=== PATIENT | female | born 1980 ===

== ENCOUNTER 2024-11-08 09:20 | Outpatient (AMB) | payer MEDICARE, MEDICAID, SELFPAY ==
--- OUTSIDE RECORDS SUMMARY | 2023-12-16 11:36 | XMS_ITS | Encounter Summary ---
Author Organization [employer] Address [address] [place] [address] Care Team Providers Care Kosher Butcher Name Role Phone Anayeli Cline MD Primary Care Provider [phone] Encounter Details Date Type Department Care Team (Late st Contact Info) Description 12/16/2023 11:36 AM EDT Hospital Encounter TH HISTORIC ENCOUNTERS EASTERN CONVERSION ONLY Sho Morfin, DO [address] [place] [address] Social History Tobacco Use Types Packs/Day Years Used Date Smoking Tobacco: Every Day Cigarettes 0.3 35.8 Started: 1989 Smokeless Tobacco: Never Alcohol Use Standard Drinks/Week Comments Not Currently 0 (1 standard drink = 0.6 oz pur e alcohol) Comments No Sex and Gender Information Value Date Recorded Sex Assigned at Female 08/27/2021 12:14 PM EDT Legal Sex Female 11:56 AM EDT Gender Identity Female 08/27/2021 12:14 PM EDT Sexual Orientation Lesbian or Seymour 08/27/2021 12 :14 PM EDT documented as of this encounter Last Filed Vital Signs Vital Sign Reading Time Taken Comments Blood Pressure 89/54 12/16/2023 12:03 PM EDT Sitting Right arm Pulse 69 12/16/2023 12:03 PM EDT Temperature - - Respiratory Rate - - Oxygen Saturation - - Inhaled Oxygen Concentration - - Weight 78 kg (172 lb) 12/16/2023 12:03 PM EDT Height 162.6 cm (5' 4 ) 11/17/2023 11:1 9 AM EDT Body Mass Index 29.52 12/01/2023 9:59 AM EDT documented in this encounter Progress Notes * Sho Morfin DO - 12/16/2023 11:45 AM EDT Images from the original note were not included. Progress Notes by Sho Morfin DO at 12/16/2023 11:45 AM Author: Sho Morfin DO Service: -- Author Type: Physician Filed: 12/16/2023 4:20 PM Encounter Date: 12/16/2023 Status: Signed Occupational Health Professional: Sho Morfin DO (Physician) Hematology/Oncology Follow Up Note Date 12/16/2023 Subjective Interval history Patient presents today for follow-up accompanied by her mother. States she is feeling better. She denies any heartburn or abdominal discomfort. She continues to abstain from alcohol. Hematologic history 43 year old female presents for evaluation of thrombocytopenia. She had labs done on 09/10/23: WBC 6.0 hemoglobin 15.3, MCV 102.1, platelets of 109. She then had bloating of her abdomen and jaundice. She noted easy bruising. Also easy bleeding as well. Subsequently she was admitted to the hospital with elevated bilirubin, suspected alcohol hepatitis. In the hospital Nov 04, her platelet count was 71. She has history of H pylori gastritis, and was treated for it ten years ago. Past Medical History Past Medical History: Diagnosis Date ? Alcoholic cirrhosis (HCC) ? Chronic kidney disease ? Diabetes mellitus (HCC) ? GERD (gastroesophageal reflux disease) ? History of hepatitis C ? History of heroin abuse (HCC) ? Liver disease ? DAIN (obstructive sleep apnea) ? Positive H. pylori test ? Substance abuse (HCC) Past Surgical History Past Surgical History: Procedure Laterality Date ? SECTION ? CHOLECYSTECTOMY ? COLONOSCOPY ? KIDNEY STONE SURGERY ? UPPER GASTROINTESTINAL ENDOSCOPY Family History Family History Problem Relation Age of Onset ? Brain cancer Father Personal and Social History Social History Tobacco Use Smoking Status Every Day ? Packs/day: 1 ? Types: Cigarettes Smokeless Tobacco Never Social History Substance and Sexual Activity Alcohol Use Not Currently Comment: Quit 10/2023 Social History Substance and Sexual Activity Drug Use Not Currently Comment: Quit 04/2022 REVIEW OF SYSTEMS: Constitutional: see above Respiratory: No cough Cardiac: No chest pain, palpitations GI: see above : No urinary complaints Skin: No rashes or ease of bruising Neuro: No headaches, dizziness, Hem/Lymph : No palpable lymph nodes, Objective Medications Current Outpatient Medications: ? acamprosate (CAMPRAL) 333 MG tablet, Take 2 tablets (666 mg total) by mouth 3 (three) times a day., Disp: , Rfl: ? COLESTIPOL HCL PO, Take by mouth 3 (three) times a day., Disp: , Rfl: ? FLUoxetine (PROzac) 20 MG capsule, Take 1 capsule (20 mg total) by mouth daily., Disp: , Rfl: ? folic acid (FOLVITE) tablet 1 mg, Take 1 tablet (1 mg total) by mouth daily., Disp: , Rfl: ? furosemide (LASIX) 20 MG tablet, Take 1 tablet (20 mg total) by mouth 2 (two) times a day., Disp:, Rfl: ? Lactulose Encephalopathy (Enulose) 10 GM/15ML SOLN solution, Take 30 mL (20 g total) by mouth once., Disp: , Rfl: ? metoclopramide (REGLAN) tablet 10 mg, Take 1 tablet (10 mg total) by mouth 4 (four) times a day.,Disp: , Rfl: ? pancrelipase, Ycc-Ykvi-Mycp, (CREON) [id number] units CPEP, Take 1 capsule (24,000 units of lipase total) by mouth 3 (three) times a day with meals., Disp: , Rfl: ? pantoprazole (PROTONIX) 40 MG tablet, Take 1 tablet (40 mg total) by mouth every morning on an empty stomach., Disp: , Rfl: ? spironolactone (ALDACTONE) tablet 50 mg, Take 1 tablet (50 mg total) by mouth daily., Disp: , Rfl: ? Suvorexant (Belsomra) 20 MG TABS, Take by mouth every night at bedtime., Disp: , Rfl: ? thiamine (VITAMIN B-1) 100 MG tablet, Take 1 tablet (100 mg total) by mouth daily., Disp: , Rfl: Allergies Allergies Allergen Reactions ? Amitriptyline ? Ciprofloxacin ? Penicillins ? [place] ? Raisin ? Sulfa Antibiotics Physical Exam Vitals: 12/16/23 1203 Pulse: 69 Temp: 97 ??F (36.1 ??C) TempSrc: Temporal SpO2: 98% Performance Status: 0 General: ill appearing, in no acute distress HENT: scleral icterus is present. Skin: warm, dry, +jaundiced Neuro: alert and oriented, normal speech DATA Labs Assessment & Plan 43 year old female presents for evaluation of thrombocytopenia. She has had normal platelets until two months ago. This is secondary thrombocytopenia and more acute in setting of alcohol use and suspected alcoholic hepatitis. There is no evidence of a primary hematologic disorder at this time. On repeat her platelet count has now normalized to 194, she has no anemia or leukopenia. There is no evidence of thyroid dysfunction. No evidence of hemolysis. Thrombocytopenia-resolved. Macrocytosis without anemia Continue follow-up with PCP and GI If macrocytosis does not subside with treatment of the cirrhosis and alcohol cessation, refer patient back for further evaluation H pylori Ab positive She has no acute symptoms Defer to GI need for breath test or stool test, will hold off on therapy She does continue on PPI Sign: Geno Morfin DO Hematology/Oncology [facility] [phone] documented in this encounter Plan of Treatment Upcoming Encounters Date Type Department Care Team (Late st Contact Info) Description 11/09/2024 11:30 AM EDT Office Visit Gastroenterology - [place] 175 [facility] 175 [facility] [address] [place] [address] Nakia Davenport PA 175 [facility] [address] [place] [address] 12/06/2024 11:45 AM EDT Office Visit Urogynecology [address] [address] Porsche Tripathi MD [address] [place] [address] [address] [place] [address] 01/03/2025 4:00 PM EST Office Visit Internal Medicine - [address] [phone] Brent Cline MD [address] [place], [place] 01/30/2025 1:00 PM EST Office Visit Orthopedics - [place] [phone] Sukh Knight PA [address] [place] [address] 03/15/2025 9:30 AM EST Office Visit Endocrinology - [address] [phone] Alona Gardner PA [address] [place], [place] documented as of this encounter Procedures Procedure Name Priority Date/Time Associated Diagnosis Comments ..MISCELLANEOUS REFERENCE LAB TEST 12/16/2023 documented in this encounter Results * Miscellaneous reference lab test (12/16/2023) us Provider Onbase LAB BLOOD ORDERABLES Final Re sult documented in this encounter Visit Diagnoses Not on filedocumented in this encounter Care Teams Kosher Butcher Relationship Specialty Start Date End Date Anayeli Cline MD 40 [facility] [place] [address] PCP - General 09/29/23 12/30/23 documented as of this encounter
--- OUTSIDE RECORDS SUMMARY | 2023-12-16 11:45 | XMS_ITS | Encounter Summary ---
Author Organization [employer] Address [address] [place] [address] Care Team Providers Care Offshore Wind Turbine Technician Name Role Phone Anayeli Cline MD Primary Care Provider [phone] Encounter Details Date Type Department Care Team (Late st Contact Info) Description 12/16/2023 11:45 AM EDT Hospital Encounter TH HISTORIC ENCOUNTERS EASTERN CONVERSION ONLY Sho Morfin, DO [address] [place] [address] Social History Tobacco Use Types Packs/Day Years Used Date Smoking Tobacco: Never Assessed Comments Unknown Sex and Gender Information Value Date Recorded Sex Assigned at Female 08/27/2021 12:14 PM EDT Legal Sex Female 11:56 AM EDT Gender Identity Female 08/27/2021 12:14 PM EDT Sexual Orientation Lesbian or Seymour 08/27/2021 12 :14 PM EDT documented as of this encounter Plan of Treatment Upcoming Encounters Date Type Department Care Team (Late st Contact Info) Description 11/09/2024 11:30 AM EDT Office Visit Gastroenterology - [place] [address] [facility] [address] [place] [phone] Nakia Davenport PA [address] [facility] [address] [place] [address] 12/06/2024 11:45 AM EDT Office Visit Urogynecology - [place] [phone] Porsche Tripathi MD [address] [place] [address] [address] [place] [address] 01/03/2025 4:00 PM EST [facility] [address] [place] [address] Brent Cline MD [address] [place], [place] 01/30/2025 1:00 PM EST Office Visit Orthopedics - [address] [phone] Sukh Knight PA [address] [place] [phone] 03/15/2025 9:30 AM EST Office Visit Endocrinology - [address] [phone] Alona Gardner PA [address] [place], [place] documented as of this encounter Visit Diagnoses Not on filedocumented in this encounter Care Teams Offshore Wind Turbine Technician Relationship Specialty Start Date End Date Anayeli Cline MD [address] [facility] [place] [address] PCP - General 09/29/23 12/30/23 documented as of this encounter
[2024-11-08 09:56] VITALS: BP 116/86; PULSE 91; RESP 16; O2SAT 97; BMI 30.2
--- NOTE | 2024-11-08 09:56 | MHC.OFFVIS ---
Vital Signs 11/08/24 09:56 Height 5 ft 4 in Weight 176 lb BMI 30.2 BP 116/86 Blood Pressure Location Rt brachial Position Sitting Respiration 16 Pulse 91 Pulse Oximetry (%) 97 Intake Visit Reasons: [employer]: RLS Bioprocess Engineer Required: No Accompanied by: Mother Allergies Penicillins Allergy (Unknown, Verified 11/08/24 09:53) Unknown Sulfa (Sulfonamide Antibiotics) Allergy (Unknown, Verified 11/08/24 09:53) Unknown sulfamethoxazole (From Bactrim) Allergy (Unknown, Verified 11/08/24 09:53) Unknown trimethoprim (From Bactrim) Allergy (Unknown, Verified 11/08/24 09:53) Unknown HPI Comments Details: Orin is a 44-year-old female patient with a past medical history of acne, alcoholic cirrhosis, anxiety, borderline personality disorder, chronic H pylori infection, hepatitis-C, CKD, GERD, depression, DAIN who is presenting today for an evaluation for restless leg. It appears that she has been previously diagnosed and in the past has been unable to get her Requip filled. According to documentation, this had worked well in the past and without Requip has had difficulty sleeping. It appears that she did have iron studies through primary care which were within normal range. And included in referral paperwork. The patient reports a history of restless legs syndrome for approximately 15 years, characterized by jerky and restless leg movements exacerbated by psychotropic medications. She has attempted various interventions, including stretching, heating pads, and magnesium supplementation, with limited success. The symptoms have been managed with ropinirole, currently at a dose of 4 mg, although she has previously been on 6 mg. The patient also has a history of sleep apnea, confirmed by multiple sleep studies, but she has not been using a CPAP device due to discomfort. She reports improvement in symptoms such as gasping and snoring, although she still experiences insomnia. Additionally, the patient has been diagnosed with rheumatoid arthritis, which has been associated with severe knee and ankle pain. She has received corticosteroid injections for symptom relief. 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 [facility] Medical History (Updated 11/08/24 @ 10:32 by Rhoda Queen CNP) Mental health disorder Liver disease Diabetes mellitus RLS (restless legs syndrome) Family History (Updated 11/08/24 @ 09:50 by Nafisa Kapadia CMA) Mother HLD (hyperlipidemia) Thyroid disease Father Brain cancer Social History (Updated 11/08/24 @ 09:51 by Nafisa Kapadia CMA) Alcohol intake: former Patient Tobacco Use Status: Current everyday Tobacco user Tobacco use type: Cigarette Cigarettes Per Day: 15 Use of substances other than those prescribed or required for medical reasons: No Substance Use Type: Crack/Cocaine and Heroin Review of Systems Const All systems reviewed & are unremarkable except as noted in HPI and below Physical Exam Vital Signs: Last Vital Signs Pulse 91 11/08/24 09:56 Resp 16 11/08/24 09:56 BP 116/86 11/08/24 09:56 Pulse Ox 97 11/08/24 09:56 BMI result Body Mass Index 30.2 Const General: cooperative, healthy appearing, comfortable and no acute distress Nutritional Appearance: well nourished Orientation/consciousness: patient oriented x3 Limitations: no limitations HEENT Head: Yes normal to inspection and Yes normocephalic Eyes General: appearance normal, both eyes and all related structures Visual Maddox: normal visual maddox by confrontation Alignment and Position: alignment normal Periorbital: periorbital findings normal Eyelids: Yes eyelids normal Conjunctivae: conjunctivae normal Sclerae: sclerae normal Neck Neck: Yes normal visual inspection and Yes full ROM General: Yes no CVA tenderness Back/Spine/Pelvis Back: no CVA tenderness Cervical Spine: normal cervical lordosis Thoracic/Lumbar Spine: thoracic and lumbar spine normal to inspection Neuro General: patient oriented x3, tone normal and deep tendon reflexes 2+ bilaterally Cranial nerves: Yes CN's II-XII intact bilaterally and Yes Facial sensation intact/muscles of mastication intact Cognition (Neuro): normal cognition Gait exam (Neuro): Normal gait present Motor exam (neuro): 5/5 motor strength present throughout and no tremor noted Sensory Exam: double simultaneous stimulation for sensation normal Romberg Test: Negative Pupils: Normal pupillary reactivity/response: bilateral Psych Appearance: grossly normal Mental Status: mental status grossly normal Speech and movement: Normal speech and movement present and Clear speech present Affect: normal affect Attitude: cooperative Thought process: Normal thought process present Thought content: Normal thought content present Insight: Good insight present (Psych) Judgement: Good judgement present (Psych) Assessment & Plan Assessment & Plan (1) RLS (restless legs syndrome): Code(s): G25.81 - Restless legs syndrome Category: Medical Plan Orin is a 44-year-old female patient with a past medical history of acne, alcoholic cirrhosis, anxiety, borderline personality disorder, chronic H pylori infection, hepatitis-C, CKD, GERD, depression, DAIN who is presenting today for an evaluation for restless leg. Adequate control of her restless leg on current dose of ropinirole 4 mg nightly. We did discuss reduction of caffeine intake and increase in hydration which may also be beneficial. Additionally, she does have a history of DAIN and is not currently treating. She does feel that her gasping arousals have improved however she has not had a sleep study in quite some time. I would like to obtain an in-lab PSG to evaluate for DAIN as contributing to her RLS. We discussed other potential options for treatment as she could not tolerate the CPAP device in the past. We discussed in depth the relationship between DAIN and RLS. -In lab PSG -Continue ropinerole 4mg nightly -Follow-up after sleep study Coding Level of Care Code New Pt Level 4 (45679) Diagnoses RLS (restless legs syndrome) G25.81
--- OUTSIDE RECORDS SUMMARY | 2024-11-08 11:00 | XMS_ITS | Clinical Summary ---
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 chronic Diabetic gastroparesis (CMS/HCC V24, CMS/HCC V28) AYUSH IFA WITH TITER AND PATTERN Routine 10/16/2024 9:57 AM EDT Pain in both knees, unspecified chronicity BORRELIA BURGDORFERI ANTIBODY Routine 10/16/2024 9:57 AM EDT Pain in both knees, unspecified chronicity RHEUMATOID FACTOR Routine 10/16/2024 9:5 7 AM EDT Pain in both knees, unspecified chronicity SEDIMENTATION RATE Routine 10/16/2024 9: 57 AM EDT Pain in both knees, unspecified chronicity URIC ACID Routine 10/16/2024 9:57 AM EDT Pain in both knees, unspecified chronicity HI ARTHROCENTESIS/ASPIRA TION/INJECTION MAJOR JOINT/BURSA W/O U/S GUIDANCE Routine 10/16/2024 9:00 AM EDT Pain in both knees, unspecified chronicity XR KNEE 4+ VIEWS BILAT Routine 10/10/2024 2:12 PM EDT Chronic pain of both knees XR CHEST 2 VIEWS Routine 10/10/2024 2:[address] of the chest US PELVIS NON OB COMPLETE W TRANSVAGINAL Routine 10/06/2024 1:28 PM EDT Bilateral ovarian cysts CT ABDOMEN PELVIS W CONTRAST Routine 09/21/2024 11:46 AM EDT Lower abdominal pain CBC WITH AUTO DIFFERENTIAL Routine 09/20/2024 11:07 AM EDT Screening for deficiency anemia FERRITIN Routine 09/20/2024 11:07 AM EDT Screening for deficiency anemia CBC AND DIFFERENTIAL Routine 09/20/2024 11:07 AM EDT Screening for deficiency anemia IRON AND TIBC Routine 09/20/2024 11:07 AM EDT Screening for deficiency anemia MCKINLEY URINE CULTURE TUBE Routine 09/15/2024 10:04 AM EDT Lower abdominal pain Acute bilateral low back pain with bilateral sciatica URINALYSIS WITH REFLEX MICROSCOPIC AND CULTURE Routine 09/15/2024 10:04 AM EDT Lower abdominal pain Acute bilateral low back pain with bilateral sciatica HCG, SERUM, QUALITATIVE Routine 09/15/2024 10:04 AM EDT Lower abdominal pain LIPASE Routine 09/15/2024 10:04 AM EDT Lower abdominal pain URINALYSIS WITH REFLEX MICROSCOPIC AND CULTURE Routine 09/15/2024 10:04 AM EDT Lower abdominal pain Acute bilateral low back pain with bilateral sciatica CULTURE URINE Routine 09/15/2024 10:04 AM EDT Lower abdominal pain Acute bilateral low back pain with bilateral sciatica XR LUMBAR SPINE 4+ VIEWS Routine 09/15/2024 9:53 AM EDT Lower abdominal pain CULTURE URINE Routine 09/14/2024 10:43 AM EDT Urinary tract infection without hematuria, site unspecified HEMOGLOBIN A1C Routine 09/12/2024 2:50 PM EDT Type 2 diabetes mellitus without complication, with long-term current use of insulin (CMS/HCC V24, CMS/HCC V28) BASIC METABOLIC PANEL Routine 09/12/2024 2:50 PM EDT Type 2 diabetes mellitus without complication, with long-term current use of insulin (CMS/HCC V24, CMS/HCC V28) LIPID PANEL WITH REFLEX TO DIRECT LDL Routine 09/12/2024 2:50 PM EDT Type 2 diabetes mellitus without complication, with long-term current use of insulin (CMS/HCC V24, CMS/HCC V28) MICROALBUMIN CREATININE URINE RATIO Routine 09/12/2024 2:50 PM EDT Type 2 diabetes mellitus without complication, with long-term current use of insulin (CMS/HCC V24, CMS/HCC V28) URINALYSIS MICROSCOPIC ONLY Routine 09/05/2024 1:40 PM EDT Urinary frequency URINALYSIS MICROSCOPIC ONLY Routine 09/05/2024 1:40 PM EDT Urinary frequency CULTURE URINE Routine 09/05/2024 1:37 PM EDT Urinary frequency POC URINE AUTO W/O MICRO Routine 09/05/2024 1:25 PM EDT Urinary frequency POC URINE AUTO W/O MICRO Routine 08/15/2024 1:26 PM EDT Urinary frequency MG MAMMO DIGITAL SCREENING BILAT Routine 02/09/2024 11:44 AM EST Encounter for screening mammogram for malignant neoplasm of breast HPV Routine 09/21/2023 HEPATITIS C SCREENING Routine 08/31/2023 DIABETES EYE EXAM Routine 07/08/2023 DEPRESSION SCREENING Routine 04/23/2023 HIV SCREENING Routine 07/23/2022 from Last 3 Months or Most Recently Relevant to Health Maintenance Results * Alpha fetoprotein tumor marker (10/24/2024 10:43 AM EDT) AFP <2.5 0.0 - 8.0 ng/mL LAB CHEMISTRY METHOD 10/24/2024 2:33 PM EDT [facility] Blood Venous blood specimen / Unknown Venipuncture / Unknown 10/24/2024 10:43 AM EDT 10/24/2024 11:54 AM EDT Narrative [facility] - 10/24/2024 2:33 PM EDT The Siemens Advia Centaur Chemiluminescent Immunoassay is used. Results obtained with different assay methods or kits cannot be used interchangeably. Results cannot be interpreted as absolute evidence of the presence or absence of malignant disease. us Nakia ROMERO LAB BLOOD ORDERABLES Final Re sult [facility] [address] [place] [address], * Ammonia (10/24/2024 10:43 AM EDT) Ammonia 30 11 - 35 mcmol/L LAB CHEMISTRY METHOD 10/24/2024 12:37 PM EDT [facility] Blood Venous blood specimen / Unknown Venipuncture / Unknown 10/24/2024 10:43 AM EDT 10/24/2024 11:55 AM EDT Nakia ROMERO LAB BLOOD ORDERABLES Final Re sult [facility] [address] [place] [address], [place] [phone] * Hepatic function panel (10/24/2024 10:43 AM EDT) Total Protein 7.3 6.0 - 8.0 g/dL LAB CHEMISTRY METHOD 10/24/2024 3:51 PM EDT [facility] Albumin 4.2 3.2 - 5.0 g/dL LAB CHEMISTRY METHOD 10/24/2024 3:51 PM EDT [facility] Total Bilirubin 0.6 0.0 - 1.4 mg/dL LAB CHEMISTRY METHOD 10/24/2024 3:51 PM EDT [facility] Bilirubin, Direct 0.2 0.0 - 0.3 mg/dL LAB CHEMISTRY METHOD 10/24/2024 3:51 PM EDT [facility] Bilirubin, Indirect 0.4 0.0 - 1.1 mg/dL LAB CHEMISTRY METHOD 10/24/2024 3:51 PM T [facility] ALT (SGPT) 36 10 - 60 unit/L LAB CHEMISTRY METHOD 10/24/2024 3:51 PM EDT [facility] AST (SGOT) 20 10 - 42 unit/L LAB CHEMISTRY METHOD 10/24/2024 3:51 PM EDT [facility] Alkaline Phosphatase 114 42 - 121 unit/L LAB CHEMISTRY METHOD 10/24/2024 3:51 PM EDT [facility] Blood Venous blood specimen / Unknown Venipuncture / Unknown 10/24/2024 10:43 AM EDT 10/24/2024 11:54 AM EDT Nakia ROMERO LAB BLOOD ORDERABLES Final Re sult Performing Organization Address [facility] [address]/ZIP Co de Phone Number [facility] [address] [place] [address], [place] [phone] * AYUSH IFA with titer and pattern (10/16/2024 9:57 AM EDT) Pathologist [facility] AYUSH Negative Negative 10/18/2024 6:58 AM EDT [facility] Comment:AYUSH performed by ind irect immunofluorescence (IFA) using HEp-2 substrate. Blood Venous blood specimen / Unknown Venipuncture / Unknown 10/16/2024 9:57 AM EDT 10/16/2024 9:57 AM EDT Sukh ROMERO LAB BLOOD ORDERABLES Final Resul t Performing Organization Address [facility] de Phone Number [facility] [address] [place] [address], [place] [phone] * Borrelia burgdorferi antibody (10/16/2024 9:57 AM EDT) [facility] Lyme Ab Negative Negative LAB CHEMISTRY METHOD 10/16/2024 1:13 PM EDT [facility] Comment: No laboratory evidence of infection with B. burgdorferi (Lyme disease). Negative results may occur in patients recently infected (<=14 days) with B. burgdorferi. If recent infection is suspected, repeat testing on a new sample collected in 7- 14 days is recommended. Blood Venous blood specimen / Unknown Venipuncture / Unknown 10/16/2024 9:57 AM EDT 10/16/2024 9:57 AM EDT Sukh ROMERO LAB BLOOD ORDERABLES Final Resul t Performing Organization Address [facility] [address]/ZIP Co de Phone Number [facility] [address] [place] [address], [place] [phone] * (ABNORMAL) Sedimentation rate (10/16/2024 9:57 AM EDT) Sed Rate 24(H) 0 - 20 mm/hr LAB HEMETOLOGY METHOD 10/16/2024 12:40 PM EDT [facility] Blood Venous blood specimen / Unknown Venipuncture / Unknown 10/16/2024 9:57 AM EDT 10/16/2024 9:57 AM EDT us Sukh ROMERO LAB BLOOD ORDERABLES Final Resul t Performing Organization Address [facility] [address]/ZIP Co de Phone Number [facility] [address] [place] [address], [place] [phone] * (ABNORMAL) Rheumatoid factor (10/16/2024 9:57 AM EDT) [facility] Rheumatoid Factor 19.0(H) <15.0 I Unit/mL LAB CHEMISTRY METHOD 10/16/2024 1:37 PM EDT [facility] Blood Venous blood specimen / Unknown Venipuncture / Unknown 10/16/2024 9:57 AM EDT 10/16/2024 9:57 AM EDT us Sukh ROMERO LAB BLOOD ORDERABLES Final Resul t Performing Organization Address [facility] [address]/ZIP Co de Phone Number [facility] [address] [place] [address], [place] [phone] * Uric acid (10/16/2024 9:57 AM EDT) [facility] Uric Acid 3.8 3.1 - 7.8 mg/dL LAB CHEMISTRY METHOD 10/16/2024 1:33 PM EDT [facility] Blood Venous blood specimen / Unknown Venipuncture / Unknown 10/16/2024 9:57 AM EDT 10/16/2024 9:57 AM EDT us Sukh ROMERO LAB BLOOD ORDERABLES Final Resul t [facility] ([facility]) [facility] [address] [place] [address], [place] [phone] * HI ARTHROCENTESIS/ASPIRATION/INJECTION MAJOR JOINT/BURSA W/O U/S GUIDANCE (10/16/2024 9:00 AM EDT) Sukh Nunez PA - 10/16/2024 9:00 AM EDT NICK Laureano 10/16/2024 10:24 AM L Inj/Asp: R knee Indications: pain Details: 22 G needle, anterolateral approach Medications: 4 mL lidocaine 1 %; 80 mg methylPREDNISolone acetate 80 mg/mL Outcome: tolerated well, no immediate complications Informed Consent: Site: Knee Laterality: Right Relevant images/test results available and reviewed: yes Health status cleared: Yes Procedure/treatment, purpose, treatment alternatives, risks/potential complications and benefits explained: yes Risk/complications/benefits details: Risks include but are not limited to: The treatment may not accomplish the desired results. Additionally bleeding, infection, damage to tendon, nerve, cartilage, muscle; thinning or lightening of the skin in the area of injection; flushing or redness of the face, elevated blood pressure or blood sugar, allergic reaction, rash, increased pain Benefits include relief of inflammation and pain Patient questions answered: yes Patient agrees, verbalizes understanding, and wants to proceed: yes Consent given by: Patient Informed consent discussion completed by Physician/HALLE with patient: Verbal Pre-procedure timeout performed: yes Sukh ROMERO IN CLINIC/BEDSIDE ORDERABLES Fin al Result * XR Knee 4+ Views bilat (10/10/2024 2:12 PM EDT) Anatomical Region Laterality Modality Lower Extremities, Knee Bilateral Radiogra phic Imaging 10/10/2024 8:31 PM EDT Impressions 10/10/2024 8:34 PM EDT Very mild degenerative changes at the patellofemoral joints. POS - [id number] -------- FINAL REPORT -------- Dictated By: Tiffanie Quijano Dictated Date: 10/10/2024 20:31 ET Assigned Physician: Tiffanie Quijano Reviewed and Electronically Signed By: Tiffanie Quijano Signed Date: 10/10/2024 20:34 ET Workstation ID: [id number] Transcribed By: Self Edit Transcribed Date: 10/10/2024 20:31 ET Narrative 10/10/2024 8:34 PM EDT EXAM: Bilateral knee x-ray HISTORY: Bilateral knee pain. COMPARISON: None VIEWS: 4 views of both knees performed, AP view performed weightbearing. FINDINGS: Very mild joint space narrowing at the lateral patellofemoral joints with lateral patellar tilting. Medial and lateral joint spaces are maintained bilaterally. No acute fracture or malalignment detected. No destructive bone lesion. No joint effusions. Procedure Note Tiffanie Quijano MD - 10/10/2024 EXAM: Bilateral knee x-ray HISTORY: Bilateral knee pain. COMPARISON: None VIEWS: 4 views of both knees performed, AP view performedweightbearing. FINDINGS: Very mild joint space narrowing at the lateral patellofemoral joints withlateral patellar tilting. Medial and lateral joint spaces are maintainedbilaterally. No acute fracture or malalignment detected. No destructivebone lesion. No joint effusions. IMPRESSION: Very mild degenerative changes at the patellofemoral joints. POS - [id number] -------- FINAL REPORT -------- Dictated By: Tiffanie Quijano Dictated Date: 10/10/2024 20:31 ET Assigned Physician: Tiffanie Quijano Reviewed and Electronically Signed By: Tiffanie Quijano Signed Date: 10/10/2024 20:34 ET Workstation ID: [id number] Transcribed By: Self Edit Transcribed Date: 10/10/2024 20:31 ET Brent Cline MD IMG XR PROCEDURES Final Result * XR Chest 2 Views (10/10/2024 2:12 PM EDT) Anatomical Region Laterality Modality Body Radiographic Magui ging 10/10/2024 4:17 PM EDT Impressions 10/10/2024 4:26 PM EDT No evidence of an acute chest process. POS - [id number] -------- FINAL REPORT -------- Dictated By: Tiffanie Quijano Dictated Date: 10/10/2024 16:17 ET Assigned Physician: Tiffanie Quijano Reviewed and Electronically Signed By: Tiffanie Quijano Signed Date: 10/10/2024 16:26 ET Workstation ID: [id number] Transcribed By: Self Edit Transcribed Date: 10/10/2024 16:17 ET Narrative 10/10/2024 4:26 PM EDT EXAM: Chest x-ray HISTORY: Follow-up groundglass opacity in the lingula on CT abdomen and pelvis. COMPARISON: 02/16/2023 and 03/29/2017, CT abdomen and pelvis 09/21/2024 FINDINGS: PA and lateral views of the chest were performed. No focal infiltrate, pleural effusion, or evidence of pulmonary edema. Heart is not enlarged. Mediastinal contours are stable. Mild degenerative changes in the spine. Procedure Note Tiffanie Quijano MD - 10/10/2024 EXAM: Chest x-ray HISTORY: Follow-up groundglass opacity in the lingula on CT abdomen andpelvis. COMPARISON: 02/16/2023 and 03/29/2017, CT abdomen and pelvis 09/21/2024 FINDINGS: PA and lateral views of the chest were performed. No focal infiltrate, pleural effusion, or evidence of pulmonary edema.Heart is not enlarged. Mediastinal contours are stable. Mild degenerativechanges in the spine. IMPRESSION: No evidence of an acute chest process. POS - [id number] -------- FINAL REPORT -------- Dictated By: Tiffanie Quijano Dictated Date: 10/10/2024 16:17 ET Assigned Physician: Tiffanie Quijano Reviewed and Electronically Signed By: Tiffanie Quijano Signed Date: 10/10/2024 16:26 ET Workstation ID: [id number] Transcribed By: Self Edit Transcribed Date: 10/10/2024 16:17 ET us Arjun ROMERO IMG XR PROCEDURES Final Result * US Pelvis Non OB Complete w Transvaginal (10/06/2024 1:28 PM EDT) Anatomical Region Laterality Modality Body, Pelvis Ultrasound 10/06/2024 3:04 PM EDT Impressions 10/06/2024 3:10 PM EDT No ovarian cysts are present. -------- FINAL REPORT -------- Dictated By: Jerzy Jacome Dictated Date: 10/06/2024 15:04 ET Assigned Physician: Jerzy Jacome Reviewed and Electronically Signed By: Jerzy Jacome Signed Date: 10/06/2024 15:10 ET Workstation ID: [id number] Transcribed By: Self Edit Transcribed Date: 10/06/2024 15:04 ET Narrative 10/06/2024 3:10 PM EDT EXAM: TRANSABDOMINAL AND TRANSVAGINAL PELVIC ULTRASOUND HISTORY: bilateral ovarian cysts COMPARISON: Ultrasound pelvis from 10/11/2023 Technique: Grayscale and Doppler images of the pelvis were obtained using transabdominal approach. Transvaginal approach was used to better characterize the ovaries. FINDINGS: The uterus is normal in size and measures 7.3 x 3.8 x 4.4 cm. The normal in caliber endometrial stripe measures up to 0.6 cm. The myometrium is unremarkable. No fibroids visualized. Right ovary measures 2.3 x 1.9 x 2.2 cm and is sonographically unremarkable. Left ovary measures 3.2 x 2.0 x 2.2 cm and is also sonographically unremarkable. No free fluid. Procedure Note Jerzy Jacome MD - 10/06/2024 EXAM: TRANSABDOMINAL AND TRANSVAGINAL PELVIC ULTRASOUND HISTORY: bilateral ovarian cysts COMPARISON: Ultrasound pelvis from 10/11/2023 Technique: Grayscale and Doppler images of the pelvis were obtained usingtransabdominal approach. Transvaginal approach was used to bettercharacterize the ovaries. FINDINGS: The uterus is normal in size and measures 7.3 x 3.8 x 4.4 cm. The normalin caliber endometrial stripe measures up to 0.6 cm. The myometrium isunremarkable. No fibroids visualized. Right ovary measures 2.3 x 1.9 x 2.2 cm and is sonographicallyunremarkable. Left ovary measures 3.2 x 2.0 x 2.2 cm and is also sonographicallyunremarkable. No free fluid. IMPRESSION: No ovarian cysts are present. -------- FINAL REPORT -------- Dictated By: Jerzy Jacome Dictated Date: 10/06/2024 15:04 ET Assigned Physician: Jerzy Jacome Reviewed and Electronically Signed By: Jerzy Jacome Signed Date: 10/06/2024 15:10 ET Workstation ID: [id number] Transcribed By: Self Edit Transcribed Date: 10/06/2024 15:04 ET us rAjun ROMERO IMG US PROCEDURES Final Result * CT Abdomen Pelvis w Contrast (09/21/2024 11:46 AM EDT) Anatomical Region Laterality Modality Body Computed Tomogra phy 09/21/2024 3:10 PM EDT Narrative 09/21/2024 3:[address] of the abdomen and pelvis with intravenous and oral contrast. History low abdominal pain. Examination was performed on multidetector scanner with administration of 100 cc of Isovue-370. Comparison with previous examinations, latest from 10/09/2023. No focal lesions were identified within the liver which on today's study revealed normal attenuation. It is arm smaller than on prior examination measuring approximately 21.4 cm and long axis. Spleen also appears to be slightly smaller measuring 14.6 cm as opposed to 16 cm previously. Gallbladder is unremarkable. There is no intrahepatic biliary ducts dilatation. Gallbladder is surgically absent. No focal abnormalities were identified in the pancreas, adrenal glands or kidneys. There is no evidence of bowel obstruction. Colon appears to be redundant. No focal abnormalities were identified. There is arm mild constipation. Uterus is unremarkable. There is suggestion of bilateral ovarian cysts measuring up to 2.7 cm on the left and 3 cm on the right. Uterus is unremarkable. Pelvic ultrasound may be considered for further assessment. Uterus and urinary bladder are unremarkable. There is no suspicious bone abnormalities. There are degenerative changes in the lower thoracic segment. There is no evidence of ventral or inguinal hernias. There is a groundglass opacity lingula which could be due to inflammatory/infectious process. There is suggestion of dependent atelectasis at the bases. CONCLUSIONS: Interval decrease in the hepatosplenomegaly with normalization of the attenuation of the liver. Suggestion of bilateral ovarian cysts. Pelvic ultrasound may be considered. Incidental findings of groundglass opacity in the lingula which could be infectious/inflammatory any is to be evaluated clinically. Mild constipation. -------- FINAL REPORT -------- Dictated By: Fay Queen Dictated Date: 09/21/2024 15:10 ET Assigned Physician: Fay Queen Reviewed and Electronically Signed By: Fay Queen Signed Date: 09/21/2024 15:24 ET Workstation ID: [id number] Transcribed By: Self Edit Transcribed Date: 09/21/2024 15:10 ET Procedure Note Fay Queen MD - 09/21/2024 CT of the abdomen and pelvis with intravenous and oral contrast. History low abdominal pain. Examination was performed on multidetector scanner with administration of100 cc of Isovue-370. Comparison with previous examinations, latest from10/09/2023. No focal lesions were identified within the liver which on today's studyrevealed normal attenuation. It is arm smaller than on prior examinationmeasuring approximately 21.4 cm and long axis. Spleen also appears to beslightly smaller measuring 14.6 cm as opposed to 16 cm previously.Gallbladder is unremarkable. There is no intrahepatic biliary ductsdilatation. Gallbladder is surgically absent. No focal abnormalities wereidentified in the pancreas, adrenal glands or kidneys. There is no evidence of bowel obstruction. Colon appears to be redundant.No focal abnormalities were identified. There is arm mild constipation. Uterus is unremarkable. There is suggestion of bilateral ovarian cystsmeasuring up to 2.7 cm on the left and 3 cm on the right. Uterus isunremarkable. Pelvic ultrasound may be considered for furtherassessment. Uterus and urinary bladder are unremarkable. There is no suspicious boneabnormalities. There are degenerative changes in the lower thoracicsegment. There is no evidence of ventral or inguinal hernias. There is a groundglass opacity lingula which could be due toinflammatory/infectious process. There is suggestion of dependentatelectasis at the bases. CONCLUSIONS: Interval decrease in the hepatosplenomegaly withnormalization of the attenuation of the liver. Suggestion of bilateralovarian cysts. Pelvic ultrasound may be considered. Incidental findings of groundglass opacity in the lingula which could beinfectious/inflammatory any is to be evaluated clinically. Mildconstipation. -------- FINAL REPORT -------- Dictated By: Fay Queen Dictated Date: 09/21/2024 15:10 ET Assigned Physician: Fay Queen Reviewed and Electronically Signed By: Fay Queen Signed Date: 09/21/2024 15:24 ET Workstation ID: [id number] Transcribed By: Self Edit Transcribed Date: 09/21/2024 15:10 ET [address] IM[address] PROCEDURES Final Result * (ABNORMAL) CBC auto differential (09/20/2024 11:07 AM EDT) WBC 6.9 4.8 - 10.8 K/mcL LAB HEMETOLOGY METHOD 09/20/2024 2:18 PM EDT [facility] RBC 4.90(H) 3.80 - 4.80 M/mcL LAB HEMETOLOGY METHOD 09/20/2024 2:18 PM EDT [facility] Hemoglobin 14.6 11.5 - 16.0 g/dL LAB HEMETOLOGY METHOD 09/20/2024 2:18 PM EDT [facility] Hematocrit 44.0 35.0 - 47.0 % LAB HEMETOLOGY METHOD 09/20/2024 2:18 PM EDT [facility] MCV 90.2 79.0 - 98.0 FL LAB HEMETOLOGY METHOD 09/20/2024 2:18 PM EDT [facility] MCH 29.9 27.0 - 32.0 pcg LAB HEMETOLOGY METHOD 09/20/2024 2:18 PM EDT [facility] MCHC 33.2 32.0 - 37.0 g/dL LAB HEMETOLOGY METHOD 09/20/2024 2:18 PM EDT [facility] RDW 13.4 11.0 - 15.0 % LAB HEMETOLOGY METHOD 09/20/2024 2:18 PM EDT [facility] Platelets 122(L) 130 - 400 K/mcL LAB HEMETOLOGY METHOD 09/20/2024 2:18 PM EDT [facility] MPV 11.8(H) 7.0 - 11.0 FL LAB HEMETOLOGY METHOD 09/20/2024 2:18 PM EDT [facility] NRBC 0.0 <1.0 % LAB [facility]EMETOLOGY [facility] NR[facility] Absolute 0.00 <0.10 K/mcL LAB HEMETOLOGY METHOD 09/20/2024 2:[facility] Neutrophils Relative 64.0 % LAB HEMETOLOGY METHOD 09/20/2024 2:[facility] Lymphocytes Relative 27.4 % LAB HEMETOLOGY METHOD 09/20/2024 2:[facility] Monocytes Relative 5.6 % LAB HEMETOLOGY METHOD 09/20/2024 2:18 PM [facility] Eosinophils Relative 1.4 % LAB HEMETOLOGY METHOD 09/20/2024 2:[facility] Basophils Relative 0.6 % LAB HEMETOLOGY METHOD 09/20/2024 2:[facility] Immature Granulocytes Relative 1.0 % LAB HEMETOLOGY METHOD 09/20/2024 2:18 [facility] Neutrophils Absolute 4.44 1.50 - 7.00 K/mcL LAB HEMETOLOGY METHOD 09/20/2024 2:18 [facility] Lymphocytes Absolute 1.90 1.00 - 5.00 K/mcL LAB HEMETOLOGY METHOD 09/20/2024 2:18 PM EDT [facility] Monocytes Absolute 0.39 0.20 - 1.00 K/mcL LAB HEMETOLOGY METHOD 09/20/2024 2:18 PM EDT [facility] Eosinophils Absolute 0.10 0.00 - 0.50 K/mcL LAB HEMETOLOGY METHOD 09/20/2024 2:18 PM EDT [facility] Basophils Absolute 0.04 0.00 - 0.20 K/[facility] LAB HEMETOLOGY METHOD 09/20/2024 2:18 PM EDT [facility] Immature Granulocytes Absolute 0.07(H) 0.00 - 0.03 K/mcL LAB HEMETOLOGY METHOD 09/20/2024 2:18 PM EDT [facility] Blood Venous blood specimen / Unknown Venipuncture / Unknown 09/20/2024 11:07 AM EDT 09/20/2024 11:07 AM EDT us Mary Lou Lopez NP LAB BLOOD ORDERABLES Final Resul t [facility] [address] [place] [address], * Iron and TIBC (09/20/2024 11:07 AM EDT) Iron 70 40 - 150 mcg/dL LAB CHEMISTRY METHOD 09/20/2024 2:21 PM EDT [facility] TIBC 360 250 - 450 mcg/dL LAB CHEMISTRY METHOD 09/20/2024 2:21 PM EDT [facility] Iron Saturation 19 15 - 50 % LAB CHEMISTRY METHOD 09/20/2024 2:21 PM EDT [facility] Blood Venous blood specimen / Unknown Venipuncture / Unknown 09/20/2024 11:07 AM EDT 09/20/2024 11:07 AM EDT us Mary Lou Lopez PYRIDINE RECOVERY OPERATOR LAB BLOOD ORDERABLES Final Resul t Performing Organization Address City/[facility] [address]/ZIP Co de Phone Number [facility] [address] [place] [address], [place] [phone] * Ferritin (09/20/2024 11:07 AM EDT) [facility] Ferritin 53 8 - 252 ng/mL LAB CHEMISTRY METHOD 09/20/2024 2:23 PM EDT [facility] Blood Venous blood specimen / Unknown Venipuncture / Unknown 09/20/2024 11:07 AM EDT 09/20/2024 11:07 AM EDT us Mary Lou Lopez NP LAB BLOOD ORDERABLES Final Resul t Performing Organization Address [facility] [address]/ZIP Me de Phone Number [facility] [address] [place] [address], [place] [phone] * (ABNORMAL) Urinalysis with reflex microscopic and culture (09/15/2024 10:04 AM EDT) [facility] Specific [place] Urine 1.017 1.003 - 1.030 LAB URINALYSIS - AUTOMATED METHOD 09/15/2024 12:51 PM [facility] pH, Urine 7.5 5.0 - 8.0 pH LAB URINALYSIS - AUTOMATED METHOD 09/15/2024 12:51 PM [facility] Leukocytes, Urine Trace(A) Negative LAB URINALYSIS - AUTOMATED METHOD 09/15/2024 12:51 PM [facility] Nitrite, Urine Negative Negative LAB URINALYSIS - AUTOMATED METHOD 09/15/2024 12:51 PM [facility] Protein, Urine Negative <=Trace mg/dL LAB URINALYSIS - AUTOMATED METHOD 09/15/2024 12:51 PM [facility] Glucose, Urine Negative Negative mg/dL LAB URINALYSIS - AUTOMATED METHOD 09/15/2024 12:51 PM EDT [facility] Ketones, Urine Negative Negative mg/dL LAB URINALYSIS - AUTOMATED METHOD 09/15/2024 12:51 PM [facility] Urobilinogen, Urine 1.0 0.2 - 1.0 mg/dL LAB URINALYSIS - AUTOMATED METHOD 09/15/2024 12:51 PM [facility] Bilirubin, Urine Negative Negative LAB URINALYSIS - AUTOMATED METHOD 09/15/2024 12:51 PM [facility] Blood, Urine Large(A) Negative LAB URINALYSIS - AUTOMATED METHOD 09/15/2024 12:51 PM [facility] RBC, Urine 3.0 0 - 4 /HPF LAB URINALYSIS - AUTOMATED METHOD 09/15/2024 12:51 PM [facility] WBC, Urine 3.0 0 - 4 /HPF LAB URINALYSIS - AUTOMATED METHOD 09/15/2024 12:51 PM [facility] Squamous Epithelial, Urine 50 0 - 60 /LPF LAB URINALYSIS - AUTOMATED METHOD 09/15/2024 12:51 PM [facility] Bacteria, Urine Negative Negative /HPF LAB URINALYSIS - AUTOMATED METHOD 09/15/2024 12:51 PM [facility] Hyaline Casts, Urine 0.00 0 - 3 /LPF LAB URINALYSIS - AUTOMATED METHOD 09/15/2024 12:51 PM [facility] Urine Urine specimen obtained by clean catch procedure / Unknown Non-blood Collection / Unknown 09/15/2024 10:04 AM EDT 09/15/2024 10:04 AM EDT us Arjun ROMERO LAB URINE ORDERABLES Fi nal Result [facility] [address] [place] [address], [place] [phone] * Mckinley urine culture tube (09/15/2024 10:04 AM EDT) [facility] Extra Tube Hold for add-ons. 09/15/2024 12:01 PM EDT [facility] Comment:Auto resulted. Urine Urine specimen obtained by clean catch procedure / Unknown Non-blood Collection / Unknown 09/15/2024 10:04 AM EDT 09/15/2024 10:04 AM EDT Arjun ROMERO LAB URINE ORDERABLES Fi nal Result [facility] [address] [place] [address], [place] [phone] * Culture urine (09/15/2024 10:04 AM EDT) Only the most recent of3 resultswithin the time period is included. [facility] Culture, Urine No growth 09/16/2024 11:20 AM EDT [facility] Urine Urine specimen obtained by clean catch procedure / Unknown Non-blood Collection / Unknown 09/15/2024 10:04 AM EDT 09/15/2024 12:51 PM EDT Arjun ROMERO LAB MICROBIOLOGY - GENE RAL ORDERABLES Final Result [facility] [address] [place] [address], [place] [phone] * HCG, serum, qualitative (09/15/2024 10:04 AM EDT) [facility] hCG Qual Negative Negative 09/15/2024 1:56 PM EDT [facility] Blood Venous blood specimen / Unknown Venipuncture / Unknown 09/15/2024 10:04 AM EDT 09/15/2024 10:04 AM EDT Arjun ROMERO LAB BLOOD ORDERABLES Fi nal Result Performing Organization Address City/[facility] [address]/ZIP Co de Phone Number [facility] [address] [place] [address], [place] [phone] * Lipase (09/15/2024 10:04 AM EDT) Lipase 53 13 - 75 unit/L LAB CHEMISTRY METHOD 09/15/2024 3:47 PM EDT [facility] Blood Venous blood specimen / Unknown Venipuncture / Unknown 09/15/2024 10:04 AM EDT 09/15/2024 10:04 AM EDT Arjun ROMERO LAB BLOOD ORDERABLES Fi nal Result Performing Organization Address [facility] [address]/[facility] Co de Phone Number [facility] [address] [place] [address], [place] [phone] * XR Lumbar Spine 4+ Views (09/15/2024 9:53 AM EDT) Anatomical Region Laterality Modality Spine, L-spine Radiographic Magui ging 09/15/2024 10:0 8 AM EDT Impressions 09/15/2024 10:10 AM EDT No acute fracture or dislocation of the lumbar spine. -------- FINAL REPORT -------- Dictated By: Jerzy Jacome Dictated Date: 09/15/2024 10:08 ET Assigned Physician: Jerzy Jacome Reviewed and Electronically Signed By: Jerzy Jacome Signed Date: 09/15/2024 10:10 ET Workstation ID: [id number] Transcribed By: Self Edit Transcribed Date: 09/15/2024 10:08 ET Narrative 09/15/2024 10:10 AM EDT HISTORY: lower back pain TECHNIQUE: 4 views of the lumbar spine COMPARISON: None FINDINGS: Vertebral body height and disc spaces are preserved. No acute fracture or dislocation is seen. The spinal alignment is well maintained without evidence of spondylolisthesis. Mild neuroforaminal stenosis is present at multiple levels. The sacroiliac joints are unremarkable. Surgical rola overlying the right upper quadrant. Large amount stool throughout the colon. Procedure Note Jerzy Jacome MD - 09/15/2024 HISTORY: lower back pain TECHNIQUE: 4 views of the lumbar spine COMPARISON: None FINDINGS: Vertebral body height and disc spaces are preserved. No acute fracture ordislocation is seen. The spinal alignment is well maintained withoutevidence of spondylolisthesis. Mild neuroforaminal stenosis is present atmultiple levels. The sacroiliac joints are unremarkable. Surgical staplesoverlying the right upper quadrant. Large amount stool throughout thecolon. IMPRESSION: No acute fracture or dislocation of the lumbar spine. -------- FINAL REPORT -------- Dictated By: Jerzy Jacome Dictated Date: 09/15/2024 10:08 ET Assigned Physician: Jerzy Jacome Reviewed and Electronically Signed By: Jerzy Jacome Signed Date: 09/15/2024 10:10 ET Workstation ID: [id number] Transcribed By: Self Edit Transcribed Date: 09/15/2024 10:08 ET Arjun ROMERO IMG XR PROCEDURES Final Result * (ABNORMAL) Lipid panel with reflex to direct LDL (09/12/2024 2:50 PM EDT) Cholesterol 214(H) 0 - 200 mg/dL LAB CHEMISTRY METHOD 09/12/2024 6:39 PM EDT [facility] Triglycerides 174(H) 0 - 150 mg/dL LAB CHEMISTRY METHOD 09/12/2024 6:39 PM EDT [facility] HDL 45 >=40 mg/dL LAB CHEMISTRY METHOD 09/12/2024 6:39 PM EDT [facility] LDL Calculated 134(H) 0 - 100 mg/dL LAB CHEMISTRY METHOD 09/12/2024 6:39 PM EDT [facility] VLDL Cholesterol Neil 34.8 mg/dL LAB CHEMISTRY METHOD 09/12/2024 6:39 PM EDT [facility] Non HDL Chol. (LDL+VLDL) 169(H) <145 mg/dL LAB CHEMISTRY METHOD 09/12/2024 6:39 PM EDT [facility] Chol/HDL Ratio 4.8(H) 0.0 - 4.4 LAB CHEMISTRY METHOD 09/12/2024 6:39 PM EDT [facility] Blood Venous blood specimen / Unknown Venipuncture / Unknown 09/12/2024 2:50 PM EDT 09/12/2024 2:50 PM EDT Alona ROMERO LAB BLOOD ORDERABLES Final Result Performing Organization Address [facility] [address]/ZIP Co de Phone Number [facility] [address] [place] [address], [place] [phone] * Microalbumin creatinine urine ratio (09/12/2024 2:50 PM EDT) Creatinine, Urine 258.0 mg/dL LAB CHEMISTRY METHOD 09/12/2024 5:54 PM EDT [facility] Microalb, Ur 14.0 0.0 - 29.0 mg/L LAB CHEMISTRY METHOD 09/12/2024 5:54 PM EDT [facility] Microalb/Creat Ratio 5 <30 mg/g creat LAB CHEMISTRY METHOD 09/12/2024 5:54 PM EDT [facility] Urine Urine specimen from urethra / Unknown Non-blood Collection / Unknown 09/12/2024 2:50 PM EDT 09/12/2024 2:50 PM EDT us Alona ROMERO LAB URINE ORDERABLES Final Result Performing Organization Address [facility] [address]/ZIP Co de Phone Number [facility] [address] [place] [address], [place] [phone] * Hemoglobin A1c (09/12/2024 2:50 PM EDT) [facility] Hemoglobin A1C 5.3 <6.5 % LAB CHEMISTRY METHOD 09/12/2024 8:47 PM EDT [facility] Mean Bld Glu Estim. 105 mg/dL LAB CHEMISTRY METHOD 09/12/2024 8:47 PM EDT [facility] Blood Venous blood specimen / Unknown Venipuncture / Unknown 09/12/2024 2:50 PM EDT 09/12/2024 2:50 PM EDT us Alona ROMERO LAB BLOOD ORDERABLES Final Result [facility] [address] [place] [address], [place] [phone] * Basic metabolic panel (09/12/2024 2:50 PM EDT) [facility] Sodium 136 133 - 145 mmol/L LAB CHEMISTRY METHOD 09/12/2024 6:36 PM EDT [facility] Potassium 4.1 3.5 - 5.5 mmol/L LAB CHEMISTRY METHOD 09/12/2024 6:36 PM T [facility] Chloride 105 96 - 110 mmol/L LAB CHEMISTRY METHOD 09/12/2024 6:36 PM T [facility] CO2 25 21 - 32 mmol/L LAB CHEMISTRY METHOD 09/12/2024 6:36 PM EDT [facility] Anion Gap 6 3 - 11 LAB CHEMISTRY METHOD 09/12/2024 6:36 PM [facility] Glucose 83 70 - 100 mg/dL LAB CHEMISTRY METHOD 09/12/2024 6:36 PM T [facility] BUN 11 5 - 25 mg/dL LAB CHEMISTRY METHOD 09/12/2024 6:36 PM [facility] Creatinine 0.76 0.50 - 1.10 mg/dL LAB CHEMISTRY METHOD 09/12/2024 6:36 PM EDT [facility] eGFR 100 >=60 mL/min/1. 73m2 LAB CHEMISTRY METHOD 09/12/2024 6:36 PM EDT [facility] Comment:Calculation based on the Chronic Kidney Disease Epidemiology Collaboration (CKD-EPI) equation refit without adjustment for race. BUN/Creatinine Ratio 14.5 LAB CHEMISTRY METHOD 09/12/2024 6:36 PM EDT [facility] Calcium 9.7 8.5 - 10.5 mg/dL LAB CHEMISTRY METHOD 09/12/2024 6:36 PM EDT [facility] Blood Venous blood specimen / Unknown Venipuncture / Unknown 09/12/2024 2:50 PM EDT 09/12/2024 2:50 PM EDT us Alona ROMERO LAB BLOOD ORDERABLES Final Result [facility] [address] [place] [address], [place] [phone] * (ABNORMAL) Urinalysis microscopic only (09/05/2024 1:40 PM EDT) RBC, Urine 1.0 0 - 4 /HPF LAB URINALYSIS - AUTOMATED METHOD 09/05/2024 4:53 PM EDT [facility] WBC, Urine 0.4 0 - 4 /HPF LAB URINALYSIS - AUTOMATED METHOD 09/05/2024 4:53 PM EDT [facility] Squamous Epithelial, Urine 61(H) 0 - 60 /LPF LAB URINALYSIS - AUTOMATED METHOD 09/05/2024 4:53 PM EDT [facility] Bacteria, Urine Negative Negative /HPF LAB URINALYSIS - AUTOMATED METHOD 09/05/2024 4:53 PM EDT [facility] Hyaline Casts, Urine 2.8 0 - 3 /LPF LAB URINALYSIS - AUTOMATED METHOD 09/05/2024 4:53 PM EDT [facility] Urine Urinary bladder structure / Unknown Non-blood Collection / Unknown 09/05/2024 1:40 PM EDT 09/05/2024 1:40 PM EDT Porsche Tripathi MD LAB URINE ORDERABLES Final Resu lt [facility] [address] [place] [address], [place] [phone] * POC Urine Auto W/O Micro (09/05/2024 1:25 PM EDT) Only the most recent of2 resultswithin the time period is included. Glucose UA POC Negative Negative, Trace mg/dL Bilirubin UA POC Negative Negative Ketones UA POC Negative Negative Specific [place] UA POC 1.025 Blood UA POC Negative Negative PH UA POC 5.5 Protein UA POC Negative Negative mg/dL Urobilinogen UA POC 0.2 E.U./dL 0.2 E.U./dL, 1.0 E.U./dL, 8 , Unable to interpret due to interfering substances mg/dL Nitrite UA POC Negative Negative Leukocytes UA POC Negative Negative Urine Urine specimen obtained by clean catch procedure / Unknown 09/05/2024 1:25 PM EDT Porsche Tripathi MD POINT OF CARE TEST ENTER/EDIT O RDERABLES Final Result * MG Mammo Digital Screening bilat (02/09/2024 11:44 AM EST) Anatomical Region Laterality Modality Breast Bilateral Mammography 02/11/2024 2:49 PM EST Impressions 02/11/2024 2:54 PM EST Benign. BI-RADS CATEGORY: 1 - NEGATIVE RECOMMENDATION: Screening bilateral mammogram is recommended in 1 year. Mammo Location: [facility], [address] [place], [place], [address], . -------- FINAL REPORT -------- Dictated By: ATILIO GODOY Dictated Date: 02/11/2024 14:49 ET Assigned Physician: ATILIO GODOY Reviewed and Electronically Signed By: ATILIO GODOY Signed Date: 02/11/2024 14:54 ET Workstation ID: [id number] Transcribed By: Self Edit Transcribed Date: 02/11/2024 14:49 ET Narrative 02/11/2024 2:54 PM EST CLINICAL: 44 years old, Female, routine annual exam. No family or personal history of breast cancer is reported. COMPARISON: This is a baseline examination. TECHNIQUE: Bilateral MLO and CC views were obtained digitally with 3-D mammogram (digital breast tomosynthesis). Computer-aided detection was utilized in evaluation of this exam (CAD). FINDINGS: There is no evidence of suspicious mass or architectural distortion. No worrisome calcifications are evident. BREAST DENSITY: B - There are scattered areas of fibroglandular density. Procedure Note Atilio Godoy MD - 02/11/2024 CLINICAL: 44 years old, Female, routine annual exam. No family orpersonal history of breast cancer is reported. COMPARISON: This is a baseline examination. TECHNIQUE: Bilateral MLO and CC views were obtained digitally with 3-Dmammogram (digital breast tomosynthesis). Computer-aided detection wasutilized in evaluation of this exam (CAD). FINDINGS: There is no evidence of suspicious mass or architectural distortion. Noworrisome calcifications are evident. BREAST DENSITY: B - There are scattered areas of fibroglandular density. IMPRESSION: Benign. BI-RADS CATEGORY: 1 - NEGATIVE RECOMMENDATION: Screening bilateral mammogram is recommended in 1 year. Mammo Location: [facility], [address] [place] [address], [facility], . -------- FINAL REPORT -------- Dictated By: ATILIO GODOY Dictated Date: 02/11/2024 14:49 ET Assigned Physician: ATILIO GODOY Reviewed and Electronically Signed By: ATILIO GODOY Signed Date: 02/11/2024 14:54 ET Workstation ID: [id number] Transcribed By: Self Edit Transcribed Date: 02/11/2024 14:49 ET Brent Cline MD IMG BI PROCEDURES Final Result * Cervical Cancer Screening: HPV (09/21/2023) [facility] Cervical Cancer Screening: HPV normal, abstracted Historical Provider HEALTH MAINTENANCE Final Result * Hepatitis C Screening (08/31/2023) [facility] Hepatitis C Screening abstracted Result [facility] Historical Provider HEALTH MAINTENANCE Final Result * Diabetes Eye Exam (07/08/2023) [facility] Diabetes: Annual Retina Eye Exam abstracted Historical Provider HEALTH MAINTENANCE Final Result * Depression Screening (04/23/2023) [facility] Depression Screening abstracted Historical Provider HEALTH MAINTENANCE Final Result * HIV Screening (07/23/2022) [facility] HIV Screening abstracted Result [facility] Historical Provider HEALTH MAINTENANCE Final Result from Last 3 Months or Most Recently Relevant to Health Maintenance Insurance MEDICARE [place]ICAID [place] Advance Directives Documents on File Type Date Recorded Patient Electro Mechanical Technician Expl anation Health Care Decision (hx) 05/19/2022 AD WINTER DIRECTIVE Health Care Decision (hx) 05/19/2022 AD WINTER DIRECTIVE Health Care Decision (hx) 05/19/2022 AD WINTER DIRECTIVE Health Care Decision (hx) 05/19/2022 AD WINTER DIRECTIVE Health Care Decision (hx) 05/19/2022 AD WINTER DIRECTIVE Health Care Decision (hx) 05/19/2022 AD WINTER DIRECTIVE Health Care Decision (hx) 05/19/2022 AD WINTER DIRECTIVE Health Care Decision (hx) 05/19/2022 AD WINTER DIRECTIVE Health Care Decision (hx) 05/19/2022 AD WINTER DIRECTIVE Health Care Decision (hx) 05/19/2022 AD WINTER DIRECTIVE Health Care Decision (hx) 05/19/2022 AD WINTER DIRECTIVE Health Care Decision (hx) 05/19/2022 AD WINTER DIRECTIVE Health Care Decision (hx) 05/19/2022 AD WINTER DIRECTIVE Health Care Decision (hx) 05/19/2022 AD WINTER DIRECTIVE Health Care Decision (hx) 05/19/2022 AD WINTER DIRECTIVE Health Care Decision (hx) 05/19/2022 AD WINTER DIRECTIVE Care Teams Government Program Manager Relationship Specialty Start Date End Date Brent Cline MD [address] [place] [id number] PCP - General Internal Medicine 12/31/23
--- OUTSIDE RECORDS SUMMARY | 2024-11-08 11:01 | XMS_ITS ---
Author Name [facility] Organization Unknown History of Medication Use Medication Directions Dispensed Refills Start Date End Date Stat us fosfomycin (MONUROL) 3 gram packet Take 3 g by mouth 1 (one) time for 1 dose. 09/18/2024 09/19/2024 active polyethylene glycol (MIRALAX) 17 gram packet Take 17 g by mouth 1 (one) time each day for 3 days. 09/15/2024 09/19/2024 active atorvastatin (LIPITOR) 10 mg tablet Take 1 tablet (10 mg total) by mouth 1 (one) time each day. 09/15/2024 active diclofenac (VOLTAREN) 75 mg EC tablet Take 1 tablet (75 mg total) by mouth 2 (two) times a day if needed (pain). Do not crush, chew, or split. 09/15/2024 active insulin aspart (NovoLOG FlexPen) 100 unit/mL (3 mL) injection pen Inject 3 times a day with meals BG< 100, 0 Unuts. 101- 150= 6 unit. 151- 200= 8 units. 201- 250= 10 units. 251- 300=12 units. 301- 350= 14 units. 351- 400= 16 units. BG> 400 call MD 09/15/2024 active methocarbamoL (ROBAXIN) 500 mg tablet Take 1 tablet (500 mg total) by mouth 4 (four) times a day if needed for muscle spasms. 09/15/2024 active mirabegron (MYRBETRIQ) 25 mg 24 hr tablet Take 1 tablet (25 mg total) by mouth 1 (one) time each day. 09/14/2024 active phenazopyridine (Pyridium) 100 mg tablet Take 1 tablet (100 mg total) by mouth 3 (three) times a day for 10 days. 09/14/2024 active HumaLOG KwikPen Insulin 100 unit/mL injection pen Dx: E11.9.Humalog Kwikpen. BG< 100, 0 Unuts. 101- 150= 6 unit. 151- 200= 8 units. 201- 250= 10 units. 251- 300=12 units. 301- 350= 14 units. 351- 400= 16 units. BG> 400 call 09/12/2024 active fluticasone propionate (FLONASE) 50 mcg/actuation nasal spray Administer 1 spray into each nostril 2 (two) times a day. 08/10/2024 active norethindrone (IVANIA,DB,SEB, MICRONOR) 0.35 mg tablet Take 1 tablet (0.35 mg total) by mouth 1 (one) time each day. 08/03/2024 active buPROPion SR (WELLBUTRIN SR) 200 mg 12 hr tablet Take 1 tablet (200 mg total) by mouth 1 (one) time each day in the morning. 07/27/2024 active lactulose (CHRONULAC) solution TAKE 15ML (10 G TOTAL) BY MOUTH TWICE A DAY 05/22/2024 active spironolactone (ALDACTONE) 25 mg tablet TAKE 1 TABLET BY MOUTH EVERY DAY 05/01/2024 active pantoprazole (PROTONIX) 40 mg EC tablet TAKE 1 TABLET BY MOUTH EVERY DAY 04/16/2024 active folic acid (FOLVITE) 1 mg tablet Take 1 tablet (1 mg total) by mouth 1 (one) time each day. 12/30/2023 active suvorexant (Belsomra) 10 mg tablet Take 2 tablets by mouth at bedtime. 11/04/2023 active LORazepam (ATIVAN) 0.5 mg tablet Take 1 tablet (0.5 mg total) by mouth 1 (one) time each day if needed. 10/14/2023 active blood sugar diagnostic (FreeStyle Lite Strips) test strip Use to check BS daily 07/05/2023 active albuterol HFA (PROAIR HFA ; PROVENTIL HFA ; VENTOLIN HFA) 90 mcg/actuation inhaler Inhale 2 puffs by mouth. 12/15/2022 active methadone (DOLOPHINE) 5 mg tablet Take 47 mg by mouth. 03/05/2021 active FLUoxetine (PROzac) 20 mg capsule Take 2 capsules (40 mg total) by mouth 1 (one) time each day. Take 1 Capsule by mouth daily. active ibuprofen (ADVIL,MOTRIN) 600 mg tablet Take 1 tablet (600 mg total) by mouth every 8 (eight) hours if needed. active metoclopramide (REGLAN) 10 mg tablet Take by mouth. active ondansetron (ZOFRAN) 4 mg tablet Take 1 tablet (4 mg total) by mouth every 8 (eight) hours if needed for nausea or vomiting. active Allergies Allergen Reaction Severity Comment Documented Date Source Status NITROFURANTOIN ANAPHYLAXIS 08/20/2022 [facility] active CIPROFLOXACIN 04/28/2022 [facility] active AMITRIPTYLINE increased restlessness in legs,Patient cannot recall what the side effect was but it was a side effect and not an allergy 10/02/2015 [facility] active PENICILLINS RASH 06/04/2009 [facility] N active SULFAMETHOXAZOLE-T RIMETHOPRIM RASH Bactrim,hives 06/04/2009 [facility] active Problems Problem Status Onset Date Problem Type Date of Resoluti on Source Anxiety active 2023-11-16 ProblemAct [facility] Generalized anxiety disorder with panic attacks active 2023-11-16 ProblemAct [facility] Substance abuse in remission ([facility] V24, [facility] V28) active 2015-06-03 ProblemAct [facility] Class 1 obesity active 2023-11-[address] [facility] Increased ammonia level active 2023-11-25 ProblemAct [facility] History of suicide attempt active 2013-10-19 ProblemAct [facility] Borderline personality disorder ([facility] V24, [facility] V28) active 2023-11-16 ProblemAct [facility] HCV (hepatitis C virus) active 2023-11-16 ProblemAct [facility] Colon polyps active 2023-11-16 ProblemAct [facility] SFRAN Irritable bowel syndrome with diarrhea active 2015-10-02 ProblemAct [facility] Agoraphobia with panic disorder active 2023-11-16 ProblemAct [facility] Marijuana use active 2019-07-20 ProblemAct [facility] HS[facility]AN RLS (restless legs syndrome) active 2017-12-07 ProblemAct [facility] Diabetic gastroparesis ([facility] V24, [facility] V28) active 2023-09-28 ProblemAct [facility] Vitamin D deficiency active 2017-08-04 ProblemAct [facility] Major depression, recurrent, chronic ([facility] V24) active 2015-12-30 ProblemAct [facility] Portal hypertensive gastropathy ([facility] V24, [facility] V28) active 2023-02-24 ProblemAct [facility] PTSD (post-traumatic stress disorder) active 2014-10-04 ProblemAct [facility] Esophagitis active 2023-11-16 ProblemAct [facility] ADELAIDA Septic arthritis of hip ([facility] V24, [facility] V28) active 2022-07-16 ProblemAct [facility] Tobacco use disorder active 2010-02-20 ProblemAct [facility] Septic arthritis of sacroiliac joint ([facility] V24) active 2022-07-21 ProblemAct [facility] GERD (gastroesophageal reflux disease) active 2023-11-16 ProblemAct [facility] Acne vulgaris active 2012-03-25 ProblemAct [facility]_T HS[facility]AN Hirsutism active 2012-03-25 ProblemAct [facility] AN Chronic Helicobacter pylori gastritis active 2017-09-09 ProblemAct [facility] Diabetes ([facility] V24, [facility] V28) active 2023-06-21 ProblemAct [facility] Obstructive sleep apnea active 2013-12-28 ProblemAct [facility] Alcoholic cirrhosis of liver without ascites ([facility] V24, [facility] V28) active 2023-11-12 ProblemAct [facility] Secondary pancreatic insufficiency active 2023-11-14 ProblemAct [facility] Immunizations Vaccine Date Source Lot Number Status Influenza trivalent, MDCK, 0 .5mL, preservative free (Flucelvax) 6mo and older 12/30/2023 [facility]AN [id number] completed Td, Unspecified 05/15/2023 [facility] completed Influenza Quadravalent, MDCK , 0.5ml, preservative free (Flucelvax) 6mo and older 03/05/2021 [facility]SFRAN [id number] completed Tdap Tetanus diptheria acell ular pertussis (Boostrix; Adacel) 7yo and older 07/12/2019 [facility] [id number] completed Influenza Quadravalent, MDCK , 0.5ml, preservative free (Flucelvax) 6mo and older 03/23/2019 [facility] [id number] completed Hepatitis A-Hepatitis B Adul t (Twinrix) 18yo and older 02/10/2018 [facility] completed Influenza Quadravalent, MDCK , 0.5ml, with preservative (Flucelvax) 6mo and older 12/07/2017 [facility] [id number] completed Hepatitis A-Hepatitis B Adul t (Twinrix) 18yo and older 09/09/2017 [facility] completed Hepatitis A-Hepatitis B Adul t (Twinrix) 18yo and older 08/11/2017 [facility] completed Influenza Quadravalent, MDCK , 0.5ml, with preservative (Flucelvax) 6mo and older 12/21/2016 [facility] [id number] completed Tdap Tetanus diptheria acell ular pertussis (Boostrix; Adacel) 7yo and older 10/25/2016 [facility] completed Influenza trivalent, 0.5mL, preservative free (Fluarix; FluLaval; Fluzone) ages 6mo and older (Afluria) 3 years and older 11/14/[id number] HPV, Quadrivalent 12/04/2011 [id number] complet ed Influenza trivalent, 0.5mL, preservative free (Fluarix; FluLaval; Fluzone) ages 6mo and older (Afluria) 3 years and older 12/04/2011 [facility] [id number] completed Tdap Tetanus diptheria acell ular pertussis (Boostrix; Adacel) 7yo and older 09/04/2009 [facility] [id number] completed Influenza trivalent, with pr eservative (Fluzone; Afluria) 6mo and older 03/22/2009 [facility] [id number] completed HPV, Quadrivalent 05/01/2008 [facility] 1129X complet ed HPV, Quadrivalent 12/23/2007 [facility] 0651X complet ed HPV, Quadrivalent 10/17/2007 [facility] 0279X complet ed Influenza trivalent, with pr eservative (Fluzone; Afluria) 6mo and older 12/15/2006 [facility] [id number] completed Td Tetanus diptheria (Tdvax) 7yo and older 02/22/2003 [facility]_T HSFRAN completed Care Team Organization Name Specialty Phone Email Start Date End Da te [facility]CO 10/11/2024 [facility] 02/03/202310/10 [facility] 10/29/20222023
--- OUTSIDE RECORDS SUMMARY | 2024-11-08 11:01 | XMS_ITS | Clinical Summary ---
Author Organization [facility] Address [address] [place] [address] Care Team Providers Care Education Courses Sales Representative Name Role Phone Anayeli Cline MD Primary Care Provider [phone] Allergies Active Allergy Reactions Criticality Noted Date Comments Amitriptyline 11/17/2023 Ciprofloxacin 11/17/2023 Penicillins 11/17/2023 Bard 11/17/2023 Raisin 11/17/2023 Sulfa Antibiotics 11/17/2023 Medications Medication Sig Dispensed Refills Start Date End Date Status Suvorexant (Belsomra) 20 MG TABS Take by mouth every night at bedtime. 0 Active metoclopramide (REGLAN) tablet 10 mg Take 1 tablet (10 mg total) by mouth 4 (four) times a day. 0 Active COLESTIPOL HCL PO Take by mouth 3 (three) times a day. 0 Active Lactulose Encephalopathy (Enulose) 10 GM/15ML SOLN solution Take 30 mL (20 g total) by mouth once. 0 Active furosemide (LASIX) 20 MG tablet Take 1 tablet (20 mg total) by mouth 2 (two) times a day. 0 Active spironolactone (ALDACTONE) tablet 50 mg Take 1 tablet (50 mg total) by mouth daily. 0 Active acamprosate (CAMPRAL) 333 MG tablet Take 2 tablets (666 mg total) by mouth 3 (three) times a day. 0 Active pantoprazole (PROTONIX) 40 MG tablet Take 1 tablet (40 mg total) by mouth every morning on an empty stomach. 0 Active folic acid (FOLVITE) tablet 1 mg Take 1 tablet (1 mg total) by mouth daily. 0 Active FLUoxetine (PROzac) 20 MG capsule Take 1 capsule (20 mg total) by mouth daily. 0 Active thiamine (VITAMIN B-1) 100 MG tablet Take 1 tablet (100 mg total) by mouth daily. 0 Active pancrelipase, Zqy-Efcd-Vcis, (CREON) 77432-25044 units CPEP Take 1 capsule (24,000 units of lipase total) by mouth 3 (three) times a day with meals. 0 Active dicyclomine (BENTYL) 10 MG/5ML syrup Take 10 mL (20 mg total) by mouth 4 (four) times a day before meals and at bedtime. 0 Active ondansetron (ZOFRAN) 24 MG tablet Take 1 tablet (24 mg total) by mouth once. 0 Active Ondansetron 4 MG FILM Take by mouth. 0 Active Active Problems No known active problems Family History Medical History Relation Name Comments Brain cancer Father Relation Name Status Comments Father Social History Tobacco Use Types Packs/Day Years Used Date Smoking Tobacco: Every Day Cigarettes 1 Smokeless Tobacco: Never Tobacco Cessation:Ready to Q uit: Not Asked; Counseling Given: Not Answered Alcohol Use Standard Drinks/Week Comments Not Currently 0 (1 standard drink = 0.6 oz pur e alcohol) Quit 10/2023 Sex and Gender Information Value Date Recorded Sex Assigned at Not on file Gender Identity Not on file Sexual Orientation Not on file Job Start Date Occupation Industry Not on file Not on file Not on file Last Filed Vital Signs Vital Sign Reading Time Taken Comments Blood Pressure 89/54 12/16/2023 12:03 PM EDT Pulse 69 12/16/2023 12:03 PM EDT Temperature 36.1 C (97 F) 12/16/2023 12:03 PM EDT Respiratory Rate - - Oxygen Saturation 98% 12/16/2023 12:03 PM EDT Inhaled Oxygen Concentration - - Weight 78 kg (172 lb) 12/16/2023 12:03 PM EDT Height 162.6 cm (5' 4 ) 11/17/2023 11:19 AM EDT Body Mass Index 29.52 11/17/2023 11:19 AM EDT Plan of Treatment Health Maintenance Due Date Last Done Comments Hepatitis C Screening 1982 COVID-19 Vaccine (#1) 1982 Pneumococcal Vaccine (1 of 2 - PCV) 01/28/1988 Depression Screening 1994 Preventative Health Evaluation 01/28/2000 Cervical Cancer Screening (Pap Smear) 2003 Influenza Vaccine (#1) 2024 2, 03/23/2019, 12/07/2017, Additional history exists DTap / Tdap / Td (5 - Td or Tdap) 05/14/2033 05/15/2023, 07/12/2019, 10/17/2016, Additional history exists Hepatitis B Vaccines Completed 02/10/2018, 09/09/2017, 08/11/2017 RSV Ped < 20 months Aged Out No longe r eligible based on patient's age to complete this topic Care Teams Education Courses Sales Representative Relationship Specialty Start Date End Date Anayeli Cline MD [address] [facility] [place] [address] PCP - General Hematology and Oncology 09/29/23
== END 2024-11-08 10:37 | disposition home or self-care (01) ==
LOC: HO.HSM 09:20
PROVIDERS: Visit Provider Nurse Practitioner
DX: G25.81 Restless legs syndrome (principal)
CPT/HCPCS: 99204

== ENCOUNTER → 2024-11-08 09:20 | Outpatient (BNVA) | payer MEDICARE, MEDICAID, SELFPAY | PROVIDERS: Visit Provider Nurse Practitioner | DX: G25.81 Restless legs syndrome (principal) | CPT/HCPCS: 99202 ==

== ENCOUNTER → 2024-11-24 20:30 | Outpatient (REF) | payer MEDICARE, MEDICAID, SELFPAY ==
--- OUTSIDE RECORDS SUMMARY | 2023-12-16 11:36 | XMS_ITS | Encounter Summary ---
Author Organization [employer] [place] [address] Care Team Providers Care French Weaver Name Role Phone Anayeli Cline MD Primary Care Provider [phone] Encounter Details Date Type Department Care Team (Late st Contact Info) Description 12/16/2023 11:36 AM EDT Hospital Encounter TH HISTORIC ENCOUNTERS EASTERN CONVERSION ONLY Sho Morfin, DO [address] [place] [address] Social History Tobacco Use Types Packs/Day Years [...] 8:05 AM EDT Cynthia Rodriguez RN * [place] Suicide Severity Rating Scale (Screener/Recent Self-Report) Question [...] 4:20 PM Encounter Date: 12/16/2023 Status: Signed Ward Attendant: Sho Morfin DO (Physician) Hematology/Oncology Follow Up [...] times a day.,Disp: , Rfl: ? pancrelipase, Wja-Rnxh-Diis, (CREON) [id number] units CPEP, Take 1 capsule (24,000 units [...] ? Amitriptyline ? Ciprofloxacin ? Penicillins ? [place] ? Raisin ? Sulfa Antibiotics Physical Exam [...] PPI Sign: Geno Morfin DO Hematology/Oncology [facility] [phone] documented in this encounter Plan of Treatment Upcoming Encounters Date Type Department Care Team (Late st Contact Info) Description 11/28/2024 1:00 PM EDT Office Visit Obstetrics and Gynecology - [address] [phone] Catarina Claire CNM [address] [place] [phone] 12/06/2024 11:45 AM EDT Office Visit Urogynecology - [address] [phone] Porsche Tripathi MD 580 [facility] 205 [place] [address] 01/03/2025 4:00 PM EST Office Visit Internal Medicine - [address] [phone] Brent Cline MD [address] [place] [address] 01/30/2025 1:00 PM EST Office Visit Orthopedics - [address] [phone] Sukh Knight PA [address] [place] [address] 03/15/2025 9:30 AM EST Office Visit Endocrinology - [address] [phone] Alona Gardner PA [address] [place] [address] 11/12/2025 11:30 AM EDT Office Visit Gastroenterology - [place] [address] [facility] [address] [place] [phone] Nakia Davenport PA [address] [facility] 200 [place] [address] documented as of this encounter Procedures Procedure Name Priority Date/Time Associated Diagnosis Comments ..MISCELLANEOUS REFERENCE LAB TEST 12/16/2023 documented in this encounter Results * Miscellaneous reference lab test (12/16/2023) us Provider Onbase LAB BLOOD ORDERABLES Final Re sult documented in this encounter Visit Diagnoses Not on filedocumented in this encounter Care Teams French Weaver Relationship Specialty Start Date End Date Anayeli Cline MD 40 [facility] [place] [address] PCP - General 09/29/23 12/30/23 documented as of this encounter
--- OUTSIDE RECORDS SUMMARY | 2023-12-16 11:45 | XMS_ITS | Encounter Summary ---
Author Organization [employer] [place] [address] Care Team Providers Care Oceanography Professor Name Role Phone Anayeli Cline MD Primary Care Provider [phone] Encounter Details Date Type Department Care Team (Late st Contact Info) Description 12/16/2023 11:45 AM EDT Hospital Encounter TH HISTORIC ENCOUNTERS EASTERN CONVERSION ONLY Sho Morfin, DO [address] [place] [address] Social History Tobacco Use Types Packs/Day Years Used Date Smoking Tobacco: Never Assessed Comments Unknown Sex and Gender Information Value Date Recorded Sex Assigned at Female 08/27/2021 12:14 PM EDT Legal Sex Female 11:56 AM EDT Gender Identity Female 08/27/2021 12:14 PM EDT Sexual Orientation Lesbian or Seymour 08/27/2021 12 :14 PM EDT documented as of this encounter Functional Status * Calculated C-SSRS Risk Score (Lifetime/Recent) Answer Date of Assessment Author No Risk Indicated 09/30/2024 8:05 AM EDT Cynthia Rodriguez RN * [place] Suicide Severity Rating Scale (Screener/Recent Self-Report) Question Answer Date of Assessment Author 1. Wish to be (Past 1 Month) No 025 8:05 AM EDT Cynthia Rodriguez RN 2. Non-Specific Active Suici antoine Thoughts (Past 1 Month) No 09/30/2024 8:05 AM EDT Alia Rodriguez RN 6. Suicidal Behavior (Lifetime) No 8:05 AM EDT Cynthia Rodriguez, RN documented as of this encounter Plan of Treatment Upcoming Encounters Date Type Department Care Team (Late st Contact Info) Description 11/28/2024 1:00 PM EDT Office Visit Obstetrics and Gynecology - [address] [phone] Catarina Claire CNM [address] [place] [address] 12/06/2024 11:45 AM EDT Office Visit Urogynecology - [address] [phone] Porsche Tripathi MD 580 [facility] [address] [place] [address] 01/03/2025 4:00 PM EST Office Visit Internal Medicine - [address] [phone] Brent Cline MD [address] [place] [address] 01/30/2025 1:00 PM EST Office Visit Orthopedics - [address] [phone] Sukh Knight PA [address] [place] [phone] 03/15/2025 9:30 AM EST Office Visit Endocrinology - [address] [phone] Alona Gardner PA [address] [place] [address] 11/12/2025 11:30 AM EDT Office Visit Gastroenterology - [place] [address] [place] [phone] Nakia Davenport PA [address] [place] [address] [place] [address] documented as of this encounter Visit Diagnoses Not on filedocumented in this encounter Care Teams Oceanography Professor Relationship Specialty Start Date End Date Anayeli Cline MD 40 [facility] [place] [address] PCP - General 09/29/23 12/30/23 documented as of this encounter
--- OUTSIDE RECORDS SUMMARY | 2024-11-24 22:07 | XMS_ITS | Clinical Summary ---
Author Organization [facility] Address [address] [place] [address] Care Team Providers Care Cook Helper Pastry Name Role Phone Anayeli Cline MD Primary Care Provider [phone] Allergies Active Allergy Reactions Criticality Noted Date Comments Amitriptyline 11/17/2023 Ciprofloxacin 11/17/2023 Penicillins 11/17/2023 Dolph 11/17/2023 Raisin 11/17/2023 Sulfa Antibiotics 11/17/2023 Medications [...] total) by mouth daily. 0 Active pancrelipase, Pwt-Updt-Sqkv, (CREON) 89635-28604 units CPEP Take 1 capsule (24,000 units [...] age to complete this topic Care Teams Cook Helper Pastry Relationship Specialty Start Date End Date Anayeli Cline MD [address] [facility] [address] PCP - General Hematology and Oncology 09/29/23
--- OUTSIDE RECORDS SUMMARY | 2024-11-24 22:07 | XMS_ITS | Clinical Summary ---
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 09/20/2024 2:18 PM EDT [facility] Eosinophils Relative 1.4 % LAB HEMETOLOGY METHOD 09/20/2024 2:18 PM EDT [facility] Basophils Relative 0.6 % LAB HEMETOLOGY METHOD 09/20/2024 2:18 PM EDT [facility] Immature Granulocytes Relative 1.0 % LAB HEMETOLOGY METHOD 09/20/2024 2:18 PM EDT [facility] Neutrophils Absolute 4.44 1.50 - 7.00 K/mcL LAB HEMETOLOGY METHOD 09/20/2024 2:18 PM EDT [facility] Lymphocytes Absolute 1.90 1.00 - 5.00 K/mcL LAB HEMETOLOGY METHOD 09/20/2024 2:18 PM EDT [facility] Monocytes Absolute 0.39 0.20 - 1.00 K/mcL LAB HEMETOLOGY METHOD 09/20/2024 2:18 PM EDT [facility] Eosinophils Absolute 0.10 0.00 - 0.50 K/mcL LAB HEMETOLOGY METHOD 09/20/2024 2:18 PM EDT [facility] Basophils Absolute 0.04 0.00 - 0.20 K/mcL LAB HEMETOLOGY METHOD 09/20/2024 2:18 PM EDT [facility] Immature Granulocytes Absolute 0.07(H) 0.00 - 0.03 K/mcL LAB HEMETOLOGY METHOD 09/20/2024 2:18 PM EDT [facility] Blood Venous blood specimen / Unknown Venipuncture / Unknown 09/20/2024 11:07 AM EDT 09/20/2024 11:07 AM EDT us Mary Lou Lopez NP LAB BLOOD ORDERABLES Final Resul t Performing Organization Address [facility] Co de Phone Number [facility] [address] [place] [address], [place] [phone] * Iron and TIBC (09/20/2024 11:07 AM EDT) Iron 70 40 - 150 mcg/dL LAB CHEMISTRY METHOD 09/20/2024 2:21 PM EDT [facility] TIBC 360 250 - 450 mcg/dL LAB CHEMISTRY METHOD 09/20/2024 2:21 PM EDT [facility] Iron Saturation 19 15 - 50 % LAB CHEMISTRY METHOD 09/20/2024 2:21 PM EDT [facility] Blood Venous blood specimen / Unknown Venipuncture / Unknown 09/20/2024 11:07 AM EDT 09/20/2024 11:07 AM EDT us Mary Lou Lopez NP LAB BLOOD ORDERABLES Final Resul t Performing Organization Address City/[facility]/ZIP Co de Phone Number [facility] [address] [place] [address], [place] [phone] * Ferritin (09/20/2024 11:07 AM EDT) Ferritin 53 8 - 252 ng/mL LAB CHEMISTRY METHOD 09/20/2024 2:23 PM EDT [facility] Blood Venous blood specimen / Unknown Venipuncture / Unknown 09/20/2024 11:07 AM EDT 09/20/2024 11:07 AM EDT us Mary Lou Lopez NP LAB BLOOD ORDERABLES Final Resul t [facility] [address] [place] [address], [place] [phone] * (ABNORMAL) Urinalysis with reflex microscopic and culture (09/15/2024 10:04 AM EDT) Specific Swink Urine 1.017 1.003 - 1.030 LAB URINALYSIS - AUTOMATED METHOD 09/15/2024 12:51 PM EDT [facility] pH, Urine 7.5 5.0 - 8.0 pH LAB URINALYSIS - AUTOMATED METHOD 09/15/2024 12:51 PM [facility] Leukocytes, Urine Trace(A) Negative LAB URINALYSIS - AUTOMATED METHOD 09/15/2024 12:51 PM [facility] Nitrite, Urine Negative Negative LAB URINALYSIS - AUTOMATED METHOD 09/15/2024 12:51 PM [facility] Protein, Urine Negative <=Trace mg/dL LAB URINALYSIS - AUTOMATED METHOD 09/15/2024 12:51 PM [facility] Glucose, Urine Negative Negative mg/dL LAB URINALYSIS - AUTOMATED METHOD 09/15/2024 12:51 PM [facility] Ketones, Urine Negative Negative mg/dL LAB URINALYSIS - AUTOMATED METHOD 09/15/2024 12:51 PM [facility] Urobilinogen, Urine 1.0 0.2 - 1.0 mg/dL LAB URINALYSIS - AUTOMATED METHOD 09/15/2024 12:51 PM [facility] Bilirubin, Urine Negative Negative LAB URINALYSIS - AUTOMATED METHOD 09/15/2024 12:51 PM [facility] Blood, Urine Large(A) Negative LAB URINALYSIS - AUTOMATED METHOD 09/15/2024 12:51 PM [facility] RBC, Urine 3.0 0 - 4 /HPF LAB URINALYSIS - AUTOMATED METHOD 09/15/2024 12:51 PM EDT [facility] WBC, Urine 3.0 0 - 4 /HPF LAB URINALYSIS - AUTOMATED METHOD 09/15/2024 12:51 PM EDT [facility] Squamous Epithelial, Urine 50 0 - 60 /LPF LAB URINALYSIS - AUTOMATED METHOD 09/15/2024 12:51 PM EDT [facility] Bacteria, Urine Negative Negative /HPF LAB URINALYSIS - AUTOMATED METHOD 09/15/2024 12:51 PM EDT [facility] Hyaline Casts, Urine 0.00 0 - 3 /LPF LAB URINALYSIS - AUTOMATED METHOD 09/15/2024 12:51 PM EDT [facility] Urine Urine specimen obtained by clean catch procedure / Unknown Non-blood Collection / Unknown 09/15/2024 10:04 AM EDT 09/15/2024 10:04 AM EDT Arjun ROMERO LAB URINE ORDERABLES Fi nal Result Performing Organization Address City/[facility]/ZIP Co de Phone Number [facility] [address] [place] [address], [place] [phone] * Mckinley urine culture tube (09/15/2024 10:04 AM EDT) Extra Tube Hold for add-ons. 09/15/2024 12:01 PM EDT [facility] Comment:Auto resulted. Urine Urine specimen obtained by clean catch procedure / Unknown Non-blood Collection / Unknown 09/15/2024 10:04 AM EDT 09/15/2024 10:04 AM EDT Arjun ROMERO LAB URINE ORDERABLES Fi nal Result Performing Organization Address City/[facility]/ZIP Co de Phone Number [facility] [address] [place] [address], [place] [phone] * Culture urine (09/15/2024 10:04 AM EDT) Only the most recent of3 resultswithin the time period is included. [facility] Culture, Urine No growth 09/16/2024 11:20 AM EDT [facility] Urine Urine specimen obtained by clean catch procedure / Unknown Non-blood Collection / Unknown 09/15/2024 10:04 AM EDT 09/15/2024 12:51 PM EDT us Arjun ROMERO LAB MICROBIOLOGY - GENE RAL ORDERABLES Final Result Performing Organization Address City/[facility]/ZIP Co de Phone Number [facility] [address] [place] [address], [place] [phone] * HCG, serum, qualitative (09/15/2024 10:04 AM EDT) [facility] hCG Qual Negative Negative 09/15/2024 1:56 PM EDT [facility] Blood Venous blood specimen / Unknown Venipuncture / Unknown 09/15/2024 10:04 AM EDT 09/15/2024 10:04 AM EDT us Arjun ROMERO LAB BLOOD ORDERABLES Fi nal Result Performing Organization Address City/[facility]/ZIP Co de Phone Number [facility] [address] [place] [address], [place] [phone] * Lipase (09/15/2024 10:04 AM EDT) [facility] Lipase 53 13 - 75 unit/L LAB CHEMISTRY METHOD 09/15/2024 3:47 PM EDT [facility] Blood Venous blood specimen / Unknown Venipuncture / Unknown 09/15/2024 10:04 AM EDT 09/15/2024 10:04 AM EDT us Arjun ROMERO LAB BLOOD ORDERABLES Fi nal Result [facility] ([facility]) [facility] [address] [place] [address], * XR Lumbar Spine 4+ Views (09/15/2024 [...] Signed Date: 09/15/2024 10:10 ET Workstation ID: [id number] Transcribed By: Self Edit Transcribed Date: 09/15/2024 [...] Signed Date: 09/15/2024 10:10 ET Workstation ID: [id number] Transcribed By: Self Edit Transcribed Date: 09/15/2024 10:08 ET us Arjun ROMERO IMG XR PROCEDURES Final Result * (ABNORMAL) Lipid panel with reflex to direct LDL (09/12/2024 2:50 PM EDT) Cholesterol 214(H) 0 - 200 mg/dL LAB CHEMISTRY METHOD 09/12/2024 6:39 PM EDT [facility] Triglycerides 174(H) 0 - 150 mg/dL LAB CHEMISTRY METHOD 09/12/2024 6:39 PM EDT [facility] HDL 45 >=40 mg/dL LAB CHEMISTRY METHOD 09/12/2024 6:39 PM EDT [facility] LDL Calculated 134(H) 0 - 100 mg/dL LAB CHEMISTRY METHOD 09/12/2024 6:39 PM EDT [facility] VLDL Cholesterol Neil 34.8 mg/dL LAB CHEMISTRY METHOD 09/12/2024 6:39 PM EDT [facility] Non HDL Chol. (LDL+VLDL) 169(H) <145 mg/dL LAB CHEMISTRY METHOD 09/12/2024 6:39 PM EDT [facility] Chol/HDL Ratio 4.8(H) 0.0 - 4.4 LAB CHEMISTRY METHOD 09/12/2024 6:39 PM EDT [facility] Blood Venous blood specimen / Unknown Venipuncture / Unknown 09/12/2024 2:50 PM EDT 09/12/2024 2:50 PM EDT us Alona ROMERO LAB BLOOD ORDERABLES Final Result [facility] [address] [place] [address], [place] [phone] * Microalbumin creatinine urine ratio (09/12/2024 2:50 PM EDT) Creatinine, Urine 258.0 mg/dL LAB CHEMISTRY METHOD 09/12/2024 5:54 PM EDT [facility] Microalb, Ur 14.0 0.0 - 29.0 mg/L LAB CHEMISTRY METHOD 09/12/2024 5:54 PM EDT [facility] Microalb/Creat Ratio 5 <30 mg/g creat LAB CHEMISTRY METHOD 09/12/2024 5:54 PM EDT [facility] Urine Urine specimen from urethra / Unknown Non-blood Collection / Unknown 09/12/2024 2:50 PM EDT 09/12/2024 2:50 PM EDT us Alona ROMERO LAB URINE ORDERABLES Final Result Performing Organization Address [facility] Co de Phone Number [facility] [address] [place] [address], [place] [phone] * Hemoglobin A1c (09/12/2024 2:50 PM EDT) Hemoglobin A1C 5.3 <6.5 % LAB CHEMISTRY METHOD 09/12/2024 8:47 PM EDT [facility] Mean Bld Glu Estim. 105 mg/dL LAB CHEMISTRY METHOD 09/12/2024 8:47 PM EDT [facility] Blood Venous blood specimen / Unknown Venipuncture / Unknown 09/12/2024 2:50 PM EDT 09/12/2024 2:50 PM EDT us Alona ROMERO LAB BLOOD ORDERABLES Final Result Performing Organization Address City/[facility]/ZIP Co de Phone Number [facility] [address] [place] [address], [place] [phone] * Basic metabolic panel (09/12/2024 2:50 PM EDT) Sodium 136 133 - 145 mmol/L LAB CHEMISTRY METHOD 09/12/2024 6:36 PM [facility] Potassium 4.1 3.5 - 5.5 mmol/L LAB CHEMISTRY METHOD 09/12/2024 6:36 PM [facility] Chloride 105 96 - 110 mmol/L LAB CHEMISTRY METHOD 09/12/2024 6:36 PM [facility] CO2 25 21 - 32 mmol/L LAB CHEMISTRY METHOD 09/12/2024 6:36 PM [facility] Anion Gap 6 3 - 11 LAB CHEMISTRY METHOD 09/12/2024 6:36 PM [facility] Glucose 83 70 - 100 mg/dL LAB CHEMISTRY METHOD 09/12/2024 6:36 PM [facility] BUN 11 5 - 25 mg/dL LAB CHEMISTRY METHOD 09/12/2024 6:36 PM [facility] Creatinine 0.76 0.50 - 1.10 mg/dL LAB CHEMISTRY METHOD 09/12/2024 6:36 PM [facility] eGFR 100 >=60 mL/min/1. 73m2 LAB CHEMISTRY METHOD 09/12/2024 6:36 PM [facility] Comment:Calculation based on the Chronic Kidney Disease Epidemiology Collaboration (CKD-EPI) equation refit without adjustment for race. BUN/Creatinine Ratio 14.5 LAB CHEMISTRY METHOD 09/12/2024 6:36 PM [facility] Calcium 9.7 8.5 - 10.5 mg/dL LAB CHEMISTRY METHOD 09/12/2024 6:36 PM [facility] Blood Venous blood specimen / Unknown Venipuncture / Unknown 09/12/2024 2:50 PM EDT 09/12/2024 2:50 PM EDT us Alona ROMERO LAB BLOOD ORDERABLES Final Result Performing Organization Address [facility]/ZIP Co de Phone Number [facility] [address] [place] [address], [place] [phone] * (ABNORMAL) Urinalysis microscopic only (09/05/2024 1:40 PM EDT) Pathologist [facility] RBC, Urine 1.0 0 - 4 /HPF LAB URINALYSIS - AUTOMATED METHOD 09/05/2024 4:53 PM EDT [facility] WBC, Urine 0.4 0 - 4 /HPF LAB URINALYSIS - AUTOMATED METHOD 09/05/2024 4:53 PM EDT [facility] Squamous Epithelial, Urine 61(H) 0 - 60 /LPF LAB URINALYSIS - AUTOMATED METHOD 09/05/2024 4:53 PM EDT [facility] Bacteria, Urine Negative Negative /HPF LAB URINALYSIS - AUTOMATED METHOD 09/05/2024 4:53 PM EDT [facility] Hyaline Casts, Urine 2.8 0 - 3 /LPF LAB URINALYSIS - AUTOMATED METHOD 09/05/2024 4:53 PM EDT [facility] Urine Urinary bladder structure / Unknown Non-blood Collection / Unknown 09/05/2024 1:40 PM EDT 09/05/2024 1:40 PM EDT us Porsche Tripathi MD LAB URINE ORDERABLES Final Resu lt [facility] [address] [place] [address], [place] [phone] * POC Urine Auto W/O Micro (09/05/2024 1:25 PM EDT) Glucose UA POC Negative Negative, Trace mg/dL Bilirubin UA POC Negative Negative Ketones UA POC Negative Negative Specific Swink UA POC 1.025 Blood UA POC Negative Negative PH UA POC 5.5 Protein UA POC Negative Negative mg/dL Urobilinogen UA POC 0.2 E.U./dL 0.2 E.U./dL, 1.0 E.U./dL, 8 , Unable to interpret due to interfering substances mg/dL Nitrite UA POC Negative Negative Leukocytes UA POC Negative Negative Urine Urine specimen obtained by clean catch procedure / Unknown 09/05/2024 1:25 PM EDT us Porsche Tripathi MD POINT OF CARE TEST ENTER/EDIT O RDERABLES Final Result * MG Mammo Digital Screening bilat (02/09/2024 11:44 AM EST) Anatomical Region Laterality Modality Breast Bilateral Mammography 02/11/2024 2:49 PM EST Impressions 02/11/2024 2:54 PM EST Benign. BI-RADS CATEGORY: 1 - NEGATIVE RECOMMENDATION: Screening bilateral mammogram is recommended in 1 year. Mammo Location: [facility], [address] [place] [address], [id number], . -------- FINAL REPORT -------- Dictated By: ATILIO GODOY Dictated Date: 02/11/2024 14:49 ET Assigned Physician: ATILIO GODOY Reviewed and Electronically Signed By: ATILIO GODOY Signed Date: 02/11/2024 14:54 ET Workstation ID: [id number] Transcribed By: Self Edit Transcribed Date: 02/11/2024 [...] year. Mammo Location: [facility], [address] [place] [address], [id number], . -------- FINAL REPORT -------- Dictated By: ATILIO GODOY Dictated Date: 02/11/2024 14:49 ET Assigned Physician: ATILIO GODOY Reviewed and Electronically Signed By: ATILIO GODOY Signed Date: 02/11/2024 14:54 ET Workstation ID: [id number] Transcribed By: Self Edit Transcribed Date: 02/11/2024 14:49 ET Result [facility] Brent Cline MD IMG BI PROCEDURES Final Result * Cervical Cancer Screening: HPV (09/21/2023) [facility] Cervical Cancer Screening: HPV normal, abstracted [facility] Provider HEALTH MAINTENANCE Final Result * Hepatitis C Screening (08/31/2023) [facility] Hepatitis C Screening abstracted Historical Provider HEALTH MAINTENANCE Final Result * Diabetes Eye Exam (07/08/2023) [facility] Diabetes: Annual Retina Eye Exam abstracted Historical Provider HEALTH MAINTENANCE Final Result * Depression Screening (04/23/2023) [facility] Depression Screening abstracted us Historical Provider HEALTH MAINTENANCE Final Result * HIV Screening (07/23/2022) HIV Screening abstracted us Historical Provider HEALTH MAINTENANCE Final Result from Last 3 Months or Most Recently Relevant to Health Maintenance Insurance [place]IC[place] Advance Directives Documents on File Type Date Recorded Patient Senior Communications Specialist Expl anation Health Care Decision (hx) 05/19/2022 [...] (hx) 05/19/2022 AD WINTER DIRECTIVE Care Teams Greenskeeper Supervisor Relationship Specialty Start Date End Date Brent Cline MD [address] [place] [id number] PCP - General Internal Medicine 12/31/23
== END ==
LOC: HO.SL 20:30
PROVIDERS: Visit Provider Nurse Practitioner
DX: G47.33 Obstructive sleep apnea (adult) (pediatric) (principal); G25.81 Restless legs syndrome
CPT/HCPCS: 95810

== ENCOUNTER → 2024-11-24 21:24 | Outpatient (BNV) | payer MEDICARE, MEDICAID, SELFPAY | PROVIDERS: Visit Provider Internal Medicine | DX: G47.33 Obstructive sleep apnea (adult) (pediatric) (principal); R06.83 Snoring | CPT/HCPCS: 95810 ==

== ENCOUNTER 2024-12-08 09:25 | Outpatient (AMB) | payer MEDICARE, MEDICAID, SELFPAY ==
--- OUTSIDE RECORDS SUMMARY | 2023-12-16 11:36 | XMS_ITS | Encounter Summary ---
Author Organization [place] [address] Care Team Providers Care Credit Advisor Name Role Phone Anayeli Cline MD Primary Care Provider [phone] Encounter Details Date Type Department Care Team (Late st Contact Info) Description 12/16/2023 11:36 AM EDT Hospital Encounter TH HISTORIC ENCOUNTERS EASTERN CONVERSION ONLY Sho Morfin, DO [address] [place] [address] Social History Tobacco Use Types Packs/Day Years Used Date Smoking Tobacco: Every Day Cigarettes 0.3 35.9 Started: 1989 Smokeless Tobacco: Never Alcohol Use [...] 9:59 AM EDT documented in this encounter Functional Status * Calculated C-SSRS Risk Score (Lifetime/Recent) Answer Date of Assessment Author No Risk Indicated 09/30/2024 8:05 AM EDT Cynthia Rodriguez RN * [place] Suicide Severity Rating Scale (Screener/Recent Self-Report) Question Answer Date of Assessment Author 1. Wish to be (Past 1 Month) No 025 8:05 AM EDT Cynthia Rodriguez RN 2. Non-Specific Active Suici antoine Thoughts (Past 1 Month) No 09/30/2024 8:05 AM EDT Alia Rodriguez RN 6. Suicidal Behavior (Lifetime) No 8:05 AM EDT Cynthia Rodriguez RN documented as of this encounter Progress Notes * Sho Morfin DO - 12/16/2023 11:45 AM EDT Images from the original note were not included. Progress Notes by Sho Morfin DO at 12/16/2023 11:45 AM Author: Sho Morfin DO Service: -- Author Type: Physician Filed: 12/16/2023 4:20 PM Encounter Date: 12/16/2023 Status: Signed Customer Experience Retail Clerk: Sho Morfin DO (Physician) Hematology/Oncology Follow Up [...] bilirubin, suspected alcohol hepatitis. In the hospital Sept 13, her platelet count was 71. She has [...] times a day.,Disp: , Rfl: ? pancrelipase, Akx-Mzdj-Jqif, (CREON) [id number] units CPEP, Take 1 capsule (24,000 units [...] ? Amitriptyline ? Ciprofloxacin ? Penicillins ? [place] ? Raisin ? Sulfa Antibiotics Physical Exam [...] of thrombocytopenia. She has had normal platelets untiltwo months ago. This is secondary thrombocytopenia and [...] PPI Sign: Geno Morfin DO Hematology/Oncology [facility] [phone] documented in this encounter Plan of Treatment Upcoming Encounters Date Type Department Care Team (Late st Contact Info) Description 01/02/2025 8:00 AM EST Appointment [facility] [address] [place] [address] 01/02/2025 9:15 AM EST Appointment [facility] Ultrasound [address] [place] [address] 01/03/2025 4:00 PM EST Office Visit Internal Medicine - [facility] [address] [place] [address] Brent Cline MD [address] [place] [address] 01/30/2025 1:00 PM EST Office Visit Orthopedics - [address] [phone] Sukh Knight PA [address] [place] [phone] 03/15/2025 9:30 AM EST Office Visit Endocrinology - [address] [phone] Alona Gardner PA [address] [place] [address] 03/28/2025 11:30 AM EST Office Visit Urogynecology - [address] [phone] Porsche Tripathi MD 580 [facility] [address] [place] [address] 11/12/2025 11:30 AM EDT Office Visit Gastroenterology - [place] 175 [facility] 175 [facility] [address] [place] [phone] Nakia Davenport PA 175 [facility] [address] [place] [address] documented as of this encounter Procedures Procedure Name Priority Date/Time Associated Diagnosis Comments ..MISCELLANEOUS REFERENCE LAB TEST 12/16/2023 documented in this encounter Results * Miscellaneous reference lab test (12/16/2023) us Provider Onbase MD LAB BLOOD ORDERABLES Final Re sult documented in this encounter Visit Diagnoses Not on filedocumented in this encounter Care Teams Credit Advisor Relationship Specialty Start Date End Date Anayeli Cline MD 40 [facility] [place] [address] PCP - General 09/29/23 12/30/23 documented as of this encounter
--- OUTSIDE RECORDS SUMMARY | 2023-12-16 11:45 | XMS_ITS | Encounter Summary ---
Author Organization [employer] [place] [address] Care Team Providers Care Liberal Arts And Humanities Chair Name Role Phone Anayeli Cline MD Primary Care Provider [phone] Encounter Details Date Type Department Care Team (Late st Contact Info) Description 12/16/2023 11:45 AM EDT Hospital Encounter TH HISTORIC ENCOUNTERS EASTERN CONVERSION ONLY Sho Morfin, DO [address] [place] [address] Social History Tobacco Use Types Packs/Day Years [...] 8:05 AM EDT Cynthia Rodriguez RN * [place] Suicide Severity Rating Scale (Screener/Recent Self-Report) Question Answer Date of Assessment Author 1. Wish to be (Past 1 Month) No 025 8:05 AM EDT Cynthia Rodriguez RN 2. Non-Specific Active Suici antoine Thoughts (Past 1 Month) No 09/30/2024 8:05 AM EDT Alia Rodriguez, RN 6. Suicidal Behavior (Lifetime) No 8:05 AM EDT Cynthia Rodriguez, RN documented as of this encounter Plan of Treatment Upcoming Encounters Date Type Department Care Team (Late st Contact Info) Description 01/02/2025 8:00 AM EST [facility]ointment [facility] [address] [phone] 01/02/2025 9:15 AM EST Appointment [facility] Ultrasound [address] [place] [phone] 01/03/2025 4:00 PM EST Office Visit Internal Medicine - [address] [phone] Brent Cline MD [address] [place] [address] 01/30/2025 1:00 PM EST Office Visit Orthopedics - [address] [phone] Sukh Knight PA [address] [place] [phone] 03/15/2025 9:30 AM EST Office Visit Endocrinology - [address] [phone] Alona Gardner PA [address] [place] [address] 03/28/2025 11:30 AM EST Office Visit Urogynecology - [address] [phone] Porsche Tripathi MD [address] [place] [address] [address] [place] [address] 11/12/2025 11:30 AM EDT Office Visit Gastroenterology - [place] [address] [place] [address] Nakia Davenport PA [address] [place] [address] documented as of this encounter Visit Diagnoses Not on filedocumented in this encounter Care Teams Liberal Arts And Humanities Chair Relationship Specialty Start Date End Date Anayeli Cline MD 40 [facility] [place] [address] PCP - General 09/29/23 12/30/23 documented as of this encounter
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
--- NOTE | 2024-12-08 09:45 | MHC.OFFVIS ---
Vital Signs 12/08/24 09:53 Height 5 ft 4 in Weight 180 lb BMI 30.9 BP 116/80 Blood Pressure Location Rt brachial Position Sitting Respiration 16 Pulse 98 Pulse Source Pulse Oximeter Pulse Oximetry (%) 97 Oxygen Delivery Method Room Air Intake Visit Reasons: after sleep study Allergies Penicillins Allergy (Unknown, Verified 11/08/24 09:53) Unknown Sulfa (Sulfonamide Antibiotics) Allergy (Unknown, Verified 11/08/24 09:53) Unknown sulfamethoxazole (From Bactrim) Allergy (Unknown, Verified 11/08/24 09:53) Unknown trimethoprim (From Bactrim) Allergy (Unknown, Verified 11/08/24 09:53) Unknown Medication List - Last Reconciled 12/08/24 by Rhoda Queen, KP bupropion HCl SR 200 mg PO QAM fluoxetine 40 mg PO DAILY insulin aspart U-100 subcut lorazepam 0.5 mg PO DAILY PRN methadone 5 mg PO DAILY mirabegron ER (Myrbetriq) 25 mg PO DAILY norethindrone (contraceptive) 0.35 mg PO DAILY propranolol 10 mg PO BEDTIME PRN spironolactone 25 mg PO DAILY suvorexant (Belsomra) 20 mg PO BEDTIME HPI Comments Details: Orin is a 44-year-old female patient with a past medical history of acne, alcoholic cirrhosis, anxiety, borderline personality disorder, chronic H pylori infection, hepatitis-C, CKD, GERD, depression, DAIN who is presenting today for a follow-up visit. At the time of our last visit she reported that she has been on ropinirole in the past with fair control of her RLS. She has been on doses up to 6 mg nightly. For sometime, her restless legs symptoms were well-controlled. Unfortunately, her symptoms started to increase again. Her history of restless legs dates back to approximately 15 years ago characterized by jerky and restless leg movements exacerbated by psychotropic medications in the past. She has tried several non pharmacological methods for treatment including stretching, heating pads, and magnesium supplementation with limited success. She also has a history of sleep apnea which was confirmed by sleep studies in the past though she could not tolerate CPAP devices to discomfort. She denied any gasping arousals were snoring though did still experience insomnia and restless legs during the night. At the time of our last visit, I recommended that we repeat her sleep study to evaluate whether or not sleep disordered breathing was playing a role in her legs symptoms. She had her sleep study completed on 11/30/2024 which showed an AHI of only 1.5 and snoring for 6% of the total sleep time. PLM index was 29 and PLM arousal index was 13. She is here today for a follow-up visit after her sleep study. Since the time of our last visit, she has reduced her caffeine intake and has increased her hydration. With these modalities she does feel that she has more energy and overall feels better but has not seen much of an improvement in her restless legs. She has been consistently taking 5 mg of ropinirole at bedtime. She also mentions that her legs can even bother her during the day. If she tries to rest were relaxed during the day she has difficulty because she feels that she has a constantly move her legs. Also to mentioned today, she tells me that she does have some headaches that has been worse. Generally, she has a few migraines per month however more recently they have been lasting up to a full week. She is currently experiencing a daily headache that has been going on for the past week or so to the bifrontal areas, temporal areas, and occipital areas bilaterally. She has a accompanying light sensitivity and nausea. She does take magnesium at home regularly for the restless leg which has not benefitted her headaches. She is not currently on any abortive therapies for her migraines. We discussed that at her next visit we should evaluate her headaches more in-depth. ON LICENSE OF [facility] Medical History (Updated 12/08/24 @ 12:37 by Rhoda Queen CNP) Mental health disorder Liver disease Diabetes mellitus RLS (restless legs syndrome) Family History (Updated 11/08/24 @ 09:50 by Nafisa Kapadia CMA) Mother HLD (hyperlipidemia) Thyroid disease Father Brain cancer Social History (Updated 11/08/24 @ 09:51 by Nafisa Kapadia CMA) Alcohol intake: former Patient Tobacco Use Status: Current everyday Tobacco user Tobacco use type: Cigarette Cigarettes Per Day: 15 Substance Use Type: Crack/Cocaine and Heroin Review of Systems Const All systems reviewed & are unremarkable except as noted in HPI and below Physical Exam Vital Signs: Last Vital Signs Pulse 98 12/08/24 09:53 Resp 16 12/08/24 09:53 BP 116/80 12/08/24 09:53 Pulse Ox 97 12/08/24 09:53 Oxygen Delivery Method Room Air 12/08/24 09:53 BMI result Body Mass Index 30.9 Const General: cooperative, healthy appearing, comfortable and no acute distress Nutritional Appearance: well nourished Orientation/consciousness: patient oriented x3 Limitations: no limitations HEENT Head: Yes normal to inspection and Yes normocephalic Eyes General: appearance normal, both eyes and all related structures Visual Maddox: normal visual maddox by confrontation Alignment and Position: alignment normal Periorbital: periorbital findings normal Eyelids: Yes eyelids normal Conjunctivae: conjunctivae normal Sclerae: sclerae normal Neck Neck: Yes normal visual inspection and Yes full ROM General: Yes no CVA tenderness Back/Spine/Pelvis Back: no CVA tenderness Cervical Spine: normal cervical lordosis Thoracic/Lumbar Spine: thoracic and lumbar spine normal to inspection Neuro General: patient oriented x3, tone normal and deep tendon reflexes 2+ bilaterally Cranial nerves: Yes CN's II-XII intact bilaterally and Yes Facial sensation intact/muscles of mastication intact Cognition (Neuro): normal cognition Gait exam (Neuro): Normal gait present Motor exam (neuro): 5/5 motor strength present throughout and no tremor noted Sensory Exam: double simultaneous stimulation for sensation normal Romberg Test: Negative Pupils: Normal pupillary reactivity/response: bilateral Psych Appearance: grossly normal Mental Status: mental status grossly normal Speech and movement: Normal speech and movement present and Clear speech present Affect: normal affect Attitude: cooperative Thought process: Normal thought process present Thought content: Normal thought content present Insight: Good insight present (Psych) Judgement: Good judgement present (Psych) Assessment & Plan Assessment & Plan (1) RLS (restless legs syndrome): Code(s): G25.81 - Restless legs syndrome Category: Medical (2) Migraine without aura and without status migrainosus, not intractable: Code(s): G43.009 - Migraine without aura, not intractable, without status migrainosus Category: Medical Plan Orin is a 44-year-old female patient with a past medical history of acne, alcoholic cirrhosis, anxiety, borderline personality disorder, chronic H pylori infection, hepatitis-C, CKD, GERD, depression, DAIN who is presenting today for a follow-up visit for RLS. Her sleep study was nondiagnostic for sleep disordered breathing. Review of primary care notes shows recent iron studies were normal. We can continue the ropinirole however I am suggesting that we change the dosing some in efforts to provide some coverage during the daytime when she is also experiencing some symptoms of restless leg. She is currently taking a total dose of 5 mg at bedtime. I am suggesting that we provide her with 4 mg extended release and 2 mg immediate release at bedtime. This will provide some coverage throughout the day with heavier dosing during the nighttime when her symptoms are the most bothersome. We also discussed her headaches today. She has some migraine-type headaches and would like an acute therapy. If indicated, we could consider starting on preventive therapy though at this time we can start with the acute therapy as her migraines have been occurring less than a few times per month but more recently can last up to a week. At the time of her next visit, we can discuss her headaches more in-depth and consider preventive therapies if indicated. -Change ropinerole from 5mg nightly immediate release to 4mg ER and 2mg immediate release at bedtime -Start trial of sumatriptan 50mg as needed for migraine -Follow-up in 2 months Coding Level of Care Code Est Pt Level 4 (13525) Diagnoses RLS (restless legs syndrome) G25.81 Migraine without aura and without status migrainosus, not intractable G43.009
[2024-12-08 09:53] VITALS: BP 116/80; PULSE 98; RESP 16; O2SAT 97; BMI 30.9
--- OUTSIDE RECORDS SUMMARY | 2024-12-08 10:31 | XMS_ITS | Clinical Summary ---
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 Performing Organization Address City/[facility]/ZIP Co de Phone Number [facility] [address] [place] [address], [place] [phone] * Ferritin (09/20/2024 11:07 AM EDT) [facility] Ferritin 53 8 - 252 ng/mL LAB CHEMISTRY METHOD 09/20/2024 2:23 PM EDT [facility] Blood Venous blood specimen / Unknown Venipuncture / Unknown 09/20/2024 11:07 AM EDT 09/20/2024 11:07 AM EDT us Mary Lou Lopez NP LAB BLOOD ORDERABLES Final Resul t [facility] [address] [place] [address], [place] [phone] * (ABNORMAL) Urinalysis with reflex microscopic and culture (09/15/2024 10:04 AM EDT) [facility] Specific [place] Urine 1.017 1.003 - 1.030 LAB URINALYSIS - AUTOMATED METHOD 09/15/2024 12:51 PM [facility] pH, Urine 7.5 5.0 - 8.0 pH LAB URINALYSIS - AUTOMATED METHOD 09/15/2024 12:51 PM [facility] Leukocytes, Urine Trace(A) Negative LAB URINALYSIS - AUTOMATED METHOD 09/15/2024 12:51 PM [facility] Nitrite, Urine Negative Negative LAB URINALYSIS - AUTOMATED METHOD 09/15/2024 12:51 PM [facility] Protein, Urine Negative <=Trace mg/dL LAB URINALYSIS - AUTOMATED METHOD 09/15/2024 12:51 PM [facility] Glucose, Urine Negative Negative mg/dL LAB URINALYSIS - AUTOMATED METHOD 09/15/2024 12:51 PM [facility] Ketones, Urine Negative Negative mg/dL LAB URINALYSIS - AUTOMATED METHOD 09/15/2024 12:51 PM [facility] Urobilinogen, Urine 1.0 0.2 - 1.0 mg/dL LAB URINALYSIS - AUTOMATED METHOD 09/15/2024 12:51 PM [facility] Bilirubin, Urine Negative Negative LAB URINALYSIS - AUTOMATED METHOD 09/15/2024 12:51 PM [facility] Blood, Urine Large(A) Negative LAB URINALYSIS - AUTOMATED METHOD 09/15/2024 12:51 PM [facility] RBC, Urine 3.0 0 - 4 /HPF LAB URINALYSIS - AUTOMATED METHOD 09/15/2024 12:51 PM [facility] WBC, Urine 3.0 0 - 4 /HPF LAB URINALYSIS - AUTOMATED METHOD 09/15/2024 12:51 PM [facility] Squamous Epithelial, Urine 50 0 - 60 /LPF LAB URINALYSIS - AUTOMATED METHOD 09/15/2024 12:51 PM EDT [facility] Bacteria, Urine Negative Negative /HPF LAB URINALYSIS - AUTOMATED METHOD 09/15/2024 12:51 PM EDT [facility] Hyaline Casts, Urine 0.00 0 - 3 /LPF LAB URINALYSIS - AUTOMATED METHOD 09/15/2024 12:51 PM EDT [facility] Urine Urine specimen obtained by clean catch procedure / Unknown Non-blood Collection / Unknown 09/15/2024 10:04 AM EDT 09/15/2024 10:04 AM EDT Arjun ROMERO LAB URINE ORDERABLES Fi nal Result Performing Organization Address [facility]/State/ZIP Co de Phone Number [facility] [address] [place] [address], [place] [phone] * [place] urine culture tube (09/15/2024 10:04 AM EDT) Extra Tube Hold for add-ons. 09/15/2024 12:01 PM EDT [facility] Comment:Auto resulted. Urine Urine specimen obtained by clean catch procedure / Unknown Non-blood Collection / Unknown 09/15/2024 10:04 AM EDT 09/15/2024 10:04 AM EDT Arjun ROMERO LAB URINE ORDERABLES Fi nal Result [facility] [address] [place] [address], [place] [phone] * Culture urine (09/15/2024 10:04 AM EDT) Only the most recent of2 resultswithin the time period is included. Culture, Urine No growth 09/16/2024 11:20 AM EDT [facility] Urine Urine specimen obtained by clean catch procedure / Unknown Non-blood Collection / Unknown 09/15/2024 10:04 AM EDT 09/15/2024 12:51 PM EDT Arjun ROMERO LAB MICROBIOLOGY - GENE RAL ORDERABLES Final Result Performing Organization Address [facility] Co de Phone Number [facility] [address] [place] [address], [place] [phone] * HCG, serum, qualitative (09/15/2024 10:04 AM EDT) [facility] hCG Qual Negative Negative 09/15/2024 1:56 PM EDT [facility] Blood Venous blood specimen / Unknown Venipuncture / Unknown 09/15/2024 10:04 AM EDT 09/15/2024 10:04 AM EDT Arjun ROMERO LAB BLOOD ORDERABLES Fi nal Result Performing Organization Address [facility] de Phone Number [facility] [address] [place] [address], [place] [phone] * Lipase (09/15/2024 10:04 AM EDT) [facility] Lipase 53 13 - 75 unit/L LAB CHEMISTRY METHOD 09/15/2024 3:47 PM EDT [facility] Blood Venous blood specimen / Unknown Venipuncture / Unknown 09/15/2024 10:04 AM EDT 09/15/2024 10:04 AM EDT Arjun ROMERO LAB BLOOD ORDERABLES Fi nal Result Performing Organization Address [facility]/ZIP Co de Phone Number [facility] [address] [place] [address], [place] [phone] * XR Lumbar Spine 4+ Views (09/15/2024 [...] Signed Date: 09/15/2024 10:10 ET Workstation ID: [id number] Transcribed By: Self Edit Transcribed Date: 09/15/2024 [...] Signed Date: 09/15/2024 10:10 ET Workstation ID: [id number] Transcribed By: Self Edit Transcribed Date: 09/15/2024 10:08 ET us Arjun ROMERO IMG XR PROCEDURES Final Result * (ABNORMAL) Lipid panel with reflex to direct LDL (09/12/2024 2:50 PM EDT) Cholesterol 214(H) 0 - 200 mg/dL LAB CHEMISTRY METHOD 09/12/2024 6:39 PM EDT [facility] Triglycerides 174(H) 0 - 150 mg/dL LAB CHEMISTRY METHOD 09/12/2024 6:39 PM EDT [facility] HDL 45 >=40 mg/dL LAB CHEMISTRY METHOD 09/12/2024 6:39 PM EDT [facility] LDL Calculated 134(H) 0 - 100 mg/dL LAB CHEMISTRY METHOD 09/12/2024 6:39 PM EDT [facility] VLDL Cholesterol Neil 34.8 mg/dL LAB CHEMISTRY METHOD 09/12/2024 6:39 PM EDT [facility] Non HDL Chol. (LDL+VLDL) 169(H) <145 mg/dL LAB CHEMISTRY METHOD 09/12/2024 6:39 PM EDT [facility] Chol/HDL Ratio 4.8(H) 0.0 - 4.4 LAB CHEMISTRY METHOD 09/12/2024 6:39 PM EDT [facility] Blood Venous blood specimen / Unknown Venipuncture / Unknown 09/12/2024 2:50 PM EDT 09/12/2024 2:50 PM EDT us Alona ROMERO LAB BLOOD ORDERABLES Final Result [facility] [address] [place] [address], * Microalbumin creatinine urine ratio (09/12/2024 2:50 PM EDT) Creatinine, Urine 258.0 mg/dL LAB CHEMISTRY METHOD 09/12/2024 5:54 PM EDT [facility] Microalb, Ur 14.0 0.0 - 29.0 mg/L LAB CHEMISTRY METHOD 09/12/2024 5:54 PM EDT [facility] Microalb/Creat Ratio 5 <30 mg/g creat LAB CHEMISTRY METHOD 09/12/2024 5:54 PM EDT [facility] Urine Urine specimen from urethra / Unknown Non-blood Collection / Unknown 09/12/2024 2:50 PM EDT 09/12/2024 2:50 PM EDT Alona ROMERO LAB URINE ORDERABLES Final Result Performing Organization Address [facility]/ZIP Co de Phone Number [facility] [address] [place] [address], [place] [phone] * Hemoglobin A1c (09/12/2024 2:50 PM EDT) Hemoglobin A1C 5.3 <6.5 % LAB CHEMISTRY METHOD 09/12/2024 8:47 PM EDT [facility] Mean Bld Glu Estim. 105 mg/dL LAB CHEMISTRY METHOD 09/12/2024 8:47 PM EDT [facility] Blood Venous blood specimen / Unknown Venipuncture / Unknown 09/12/2024 2:50 PM EDT 09/12/2024 2:50 PM EDT Alona ROMERO LAB BLOOD ORDERABLES Final Result [facility] [address] [place] [address], [place] [phone] * Basic metabolic panel (09/12/2024 2:50 PM EDT) Sodium 136 133 - 145 mmol/L LAB CHEMISTRY METHOD 09/12/2024 6:36 PM EDT [facility] Potassium 4.1 3.5 - 5.5 mmol/L LAB CHEMISTRY METHOD 09/12/2024 6:36 PM EDT [facility] Chloride 105 96 - 110 mmol/L LAB CHEMISTRY METHOD 09/12/2024 6:36 PM T [facility] CO2 25 21 - 32 mmol/L LAB CHEMISTRY METHOD 09/12/2024 6:36 PM [facility] Anion Gap 6 3 - 11 LAB CHEMISTRY METHOD 09/12/2024 6:36 PM T [facility] Glucose 83 70 - 100 mg/dL LAB CHEMISTRY METHOD 09/12/2024 6:36 PM [facility] BUN 11 5 - 25 mg/dL LAB CHEMISTRY METHOD 09/12/2024 6:36 PM [facility] Creatinine 0.76 0.50 - 1.10 mg/dL LAB CHEMISTRY METHOD 09/12/2024 6:36 PM [facility] eGFR 100 >=60 mL/min/1. 73m2 LAB CHEMISTRY METHOD 09/12/2024 6:36 PM T [facility] Comment:Calculation based on the Chronic Kidney Disease Epidemiology Collaboration (CKD-EPI) equation refit without adjustment for race. BUN/Creatinine Ratio 14.5 LAB CHEMISTRY METHOD 09/12/2024 6:36 PM [facility] Calcium 9.7 8.5 - 10.5 mg/dL LAB CHEMISTRY METHOD 09/12/2024 6:36 PM T [facility] Blood Venous blood specimen / Unknown Venipuncture / Unknown 09/12/2024 2:50 PM EDT 09/12/2024 2:50 PM EDT us Alona ROMERO LAB BLOOD ORDERABLES Final Result [facility] [address] [place] [address], [place] [phone] * MG Mammo Digital Screening bilat (02/09/2024 11:44 AM EST) Anatomical Region Laterality Modality Breast Bilateral Mammography 02/11/2024 2:49 PM EST Impressions 02/11/2024 2:54 PM EST Benign. BI-RADS CATEGORY: 1 - NEGATIVE RECOMMENDATION: Screening bilateral mammogram is recommended in 1 year. Mammo Location: [facility], [address] [place] [address], [id number], . -------- FINAL REPORT -------- Dictated By: ATILIO GODOY Dictated Date: 02/11/2024 14:49 ET Assigned Physician: ATILIO GODOY Reviewed and Electronically Signed By: ATILIO GODOY Signed Date: 02/11/2024 14:54 ET Workstation ID: [id number] Transcribed By: Self Edit Transcribed Date: 02/11/2024 [...] year. Mammo Location: [facility], [address] [place] [address], [id number], . -------- FINAL REPORT -------- Dictated By: ATILIO GODOY Dictated Date: 02/11/2024 14:49 ET Assigned Physician: ATILIO GODOY Reviewed and Electronically Signed By: ATILIO GODOY Signed Date: 02/11/2024 14:54 ET Workstation ID: [id number] Transcribed By: Self Edit Transcribed Date: 02/11/2024 14:49 ET Result [facility] Brent Cline MD IMG BI PROCEDURES Final Result * Cervical Cancer Screening: HPV (09/21/2023) [facility] Cervical Cancer Screening: HPV normal, abstracted Result [facility] Historical Provider HEALTH MAINTENANCE Final Result * Hepatitis C Screening (08/31/2023) [facility] Hepatitis C Screening abstracted Result [facility] Historical Provider HEALTH MAINTENANCE Final Result * Diabetes Eye Exam (07/08/2023) [facility] Diabetes: Annual Retina Eye Exam abstracted Result [facility] Historical Provider HEALTH MAINTENANCE Final Result * Depression Screening (04/23/2023) [facility] Depression Screening abstracted Result [facility] Historical Provider HEALTH MAINTENANCE Final Result * HIV Screening (07/23/2022) [facility] HIV Screening abstracted Result [facility] Historical Provider HEALTH MAINTENANCE Final Result from Last 3 Months or Most Recently Relevant to Health Maintenance Insurance [place]ICARE [place]ID [place] Advance Directives Documents on File Type Date Recorded 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
--- OUTSIDE RECORDS SUMMARY | 2024-12-08 10:31 | XMS_ITS | Clinical Summary ---
Author Organization [facility] Address [address] [place] [address] Care Team Providers Care Director Of Safety And Security Name Role Phone Anayeli Cline MD Primary Care Provider [phone] Allergies Active Allergy Reactions Criticality Noted Date Comments Amitriptyline 11/17/2023 Ciprofloxacin 11/17/2023 Penicillins 11/17/2023 [place] 11/17/2023 Raisin 11/17/2023 Sulfa Antibiotics 11/17/2023 Medications [...] total) by mouth daily. 0 Active pancrelipase, Atp-Lcha-Crlm, (CREON) 20195-39710 units CPEP Take 1 capsule (24,000 units [...] age to complete this topic Care Teams Director Of Safety And Security Relationship Specialty Start Date End Date Anayeli Cline MD [address] [facility] [place] [address] PCP - General Hematology and Oncology 09/29/23
== END 2024-12-08 10:09 | disposition home or self-care (01) ==
LOC: HO.HSM 09:26
PROVIDERS: Visit Provider Nurse Practitioner
DX: G25.81 Restless legs syndrome (principal); G43.009 Migraine without aura, not intractable, without status migrainosus
CPT/HCPCS: 99214

== ENCOUNTER → 2024-12-08 09:25 | Outpatient (BNVA) | payer MEDICARE, MEDICAID, SELFPAY | PROVIDERS: Visit Provider Nurse Practitioner | DX: G25.81 Restless legs syndrome (principal); G43.009 Migraine without aura, not intractable, without status migrainosus | CPT/HCPCS: 99212 ==